=== PATIENT | male | born 1955 | race Caucasian/White ===

== ENCOUNTER → 2016-07-04 | Outpatient (CLI) | payer BC ==
--- NOTE | 2016-07-04 19:22 | CT ---
EXAMINATION TYPE: CT brain wo con DATE OF EXAM: 07/04/2016 6:35 PM COMPARISON: NONE HISTORY: PT STATES OF MEMORY LOSS X2 MONTHS. CT DLP: 1035.1 mGycm Automated exposure control for dose reduction was used. FINDINGS: The ventricles and sulci appear normal for age. There is no mass effect nor midline shift. There is n o sign of intracranial hemorrhage. The calvarium is intact. IMPRESSION: Negative unenhanced head CT scan.
== END ==
LOC: RADCTMAIN 18:17
PROVIDERS: ATTEND Family Medicine
DX: R41.3 Other amnesia (principal)
CPT/HCPCS: 70450

== ENCOUNTER → 2018-08-23 | Outpatient (CLI) | payer BC ==
--- NOTE | 2018-08-23 11:20 | ECHOF ---
Referral Reason: MEASUREMENTS -------- HEIGHT: 172.7 cm WEIGHT: 158.8 kg BP: IVSd: 1.2 cm (0.6 - 1.1) LVIDd: 5.4 cm (3.9 - 5.3) LVPWd: 1.6 cm (0.6 - 1.1) IVSs: 2.1 cm LVIDs: 1.8 cm LVPWs: 2.0 cm Ao Diam: 3.4 cm (2.0 - 3.7) AV Cusp: 2.3 cm (1.5 - 2.6) LA Diam: 3.1 cm (2.7 - 3.8) MV E Brant: 0.93 m/s MV DecT: 266 ms MV A Brant: 1.03 m/s MV E/A Ratio: 0.90 RAP: 5.00 mmHg RVSP: 8.59 mmHg FINDINGS -------- Sinus rhythm. This was a technically difficult study with suboptimal views. The left ventricular size is normal. There is moderate concentric left ventricular hypertrophy. O verall left ventricular systolic function is normal with, an EF between 55 - 60 %. The RV was not well visualized. The left atrium was not well visualized. The right atrium was not well visualized. Lumason used Interatrial and interventricular septum intact. The aortic valve was not well visualized. There is trace mitral regurgitation. The tricuspid valve was not well visualized. Trace tricuspid regurgitation present. The right lamine tricular systolic pressure, as measured by Doppler, is 8.59mmHg. There is no pulmonic regurgitation present. The aortic root size is normal. IVC Not well visulized. There is no pericardial effusion. CONCLUSIONS -------- 1. Sinus rhythm. 2. This was a technically difficult study with suboptimal views. 3. The left ventricular size is normal. 4. There is moderate concentric left ventricular hypertrophy. 5. Overall left ventricular systolic function is normal with, an EF between 55 - 60 %. 6. The RV was not well visualized. 7. The left atrium was not well visualized. 8. The right atrium was not well visualized. 9. Lumason used 10. Interatrial and interventricular septum intact. 11. The aortic valve was not well visualized. 12. There is trace mitral regurgitation. 13. The tricuspid valve was not well visualized. 14. Trace tricuspid regurgitation present. 15. The right ventricular systolic pressure, as measured by Doppler, is 8.59mmHg. 16. There is no pulmonic regurgitation present. 17. The aortic root size is normal. 18. IVC Not well visulized. 19. There is no pericardial effusion. [employer]ON APPRENTICE: Laila Baltazar RDCS
== END | disposition home or self-care (01) ==
LOC: RADECHMAIN 07:46
PROVIDERS: ATTEND Family Medicine
DX: I11.9 Hypertensive heart disease without heart failure (principal); E11.9 Type 2 diabetes mellitus without complications; E78.2 Mixed hyperlipidemia
CPT/HCPCS: 93306; Q9950

== ENCOUNTER → 2018-09-18 | Outpatient (CLI) | payer BC ==
--- NOTE | 2018-09-18 08:27 | US ---
EXAMINATION TYPE: US venous doppler duplex LE DATE OF EXAM: 09/18/2018 7:15 AM COMPARISON: NONE CLINICAL HISTORY: R60.9 Edema,L03.116 Lt Cellulitis, L03.115 Rt Cell. SIDE PERFORMED: Bilateral TECHNIQUE: The lower extremity deep venous system is examined utilizing real time linear array sonog carli with graded compression, doppler sonography and color-flow sonography. VESSELS IMAGED: External Iliac Vein (EIV) Common Femoral Vein Deep Femoral Vein Greater Saphenous Vein * Femoral Vein Popliteal Vein Proximal Calf Veins (* superficial vessels) Grayscale, color doppler, spectral doppler imaging performed of the deep veins of the lower extremiti es. There is normal flow, compressibility, vascular waveforms. Right Leg: Negative for DVT Left Leg: Negative for DVT IMPRESSION: No sonographic evidence of deep venous thrombosis within the bilateral lower extremities .
== END | disposition home or self-care (01) ==
LOC: RADUSWWP 06:37
PROVIDERS: ATTEND Family Medicine
DX: R60.9 Edema, unspecified (principal); L03.116 Cellulitis of left lower limb; L03.115 Cellulitis of right lower limb
CPT/HCPCS: 93970

== ENCOUNTER → 2019-12-10 | Outpatient (CLI) | payer BC ==
--- NOTE | 2019-12-10 13:48 | CT ---
EXAMINATION TYPE: CT brain wo con DATE OF EXAM: 12/10/2019 COMPARISON: 07/04/2016 INDICATION: Double vision today. DLP: 1219 mGycm, Automated exposure control for dose reduction was used. CONTRAST: None CT of the brain is performed utilizing 3 mm thick sections through the posterior fossa and 3 mm thick sections through the remaining calvarium. Study is performed within 24 hours of arrival to the hosp [facility]. No abnormal hyperdensity is present to suggest an acute intracranial hemorrhage. No mass lesion is evident. No acute infarcts are evident. Ventricles and sulci are appropriate for the patient age. Paranasal sinuses and mastoid air cells within the [id number] are clear. IMPRESSIONS: 1. Normal CT Brain
== END | disposition home or self-care (01) ==
LOC: RADCTMAIN 13:14
PROVIDERS: ATTEND Family Medicine
DX: H53.2 Diplopia (principal); I10 Essential (primary) hypertension; R51 Headache
CPT/HCPCS: 70450

== ENCOUNTER 2019-12-17 09:06 | Observation (INO) | payer BC ==
[2019-12-17] MEDS ORDERED: RX INFO: IV CONTRAST WAS GIVEN 1 EACH MISC MISCELLANE PRN (09:47)
[2019-12-17] MEDS ORDERED: NITROGLYCERIN SL TABS 0.4 MG TAB SUBLINGUAL STA (09:47)
[2019-12-17] MEDS ORDERED: ASPIRIN 81 MG PO STA (09:47)
[2019-12-17] MEDS ORDERED: ACETAMINOPHEN TAB 325 MG TAB PO STA (09:48)
[2019-12-17 10:11] LABS: Basophils % (A) 0 %; Eosinophils # (A) 0.1 k/uL (0-0.7); Eosinophils % (A) 1 %; HCT 45.1 % (39.0-53.0); HGB 15.2 gm/dL (13.0-17.5); Lymphocytes # (A) 1.4 k/uL (1.0-4.8); Lymphocytes % (A) 13 %; MCH 30.5 pg (25.0-35.0); MCHC 33.7 g/dL (31.0-37.0); MCV 90.3 fL (80.0-100.0); Mean Platelet Volume 7.8; Monocytes # (A) 0.4 k/uL (0-1.0); Monocytes % (A) 4 %; Neutrophils # (A) 8.6 k/uL (1.3-7.7); Neutrophils % (A) 80 %; Platelet Count 205 k/uL (150-450); RDW 12.7 % (11.5-15.5); WBC 10.8 k/uL (3.8-10.6)
[2019-12-17 10:26] LABS: INR 0.9 (<1.2); Partial Thromboplastin Time 23.4 sec (22.0-30.0); Prothrombin Time 9.8 sec (9.0-12.0)
[2019-12-17 10:36] LABS: ALT 35 U/L (4-49); AST 44 U/L (17-59); African American GFR (CKD) >90 (>60 ml/min/1.73 sqM); Albumin 4.2 g/dL (3.5-5.0); Alkaline Phosphatase 156 U/L (38-126); Anion Gap 8 mmol/L; Blood Urea Nitrogen 15 mg/dL (9-20); Calcium 9.4 mg/dL (8.4-10.2); Carbon Dioxide 24 mmol/L (22-30); Chloride 107 mmol/L (98-107); Glucose 168 mg/dL (74-99); Magnesium 1.9 mg/dL (1.6-2.3); Non-African American GFR(CKD) >90 (>60 ml/min/1.73 sqM); Potassium 4.3 mmol/L (3.5-5.1); Sodium 139 mmol/L (137-145); Total Bilirubin 0.9 mg/dL (0.2-1.3); Total Protein 7.3 g/dL (6.3-8.2)
--- NOTE | 2019-12-17 10:52 | ED ---
Chest Pain HPI - General Chief Complaint: Chest Pain Stated Complaint: chest pain Time Seen by Provider: 12/17/19 09:10 Source: patient Mode of arrival: wheelchair - History of Present Illness Initial Comments: Patient is a 64-year-old male presents emergency room with reported chest pain. States it started around 6 AM this morning. He describes it as a pressure which radiates to his left arm. Has left arm numbness and tingling. Pain has been steady. Did not attempt to take any medications for his symptoms. Denies ripping or tearing sensation to his back. Has associated nausea without vomiting. Also admits to diaphoresis. No previous history of cardiac disease. Denies any fevers or chills. No cough or hemoptysis. Patient reports his been a significant period of time since he had a stress test. Patient also reports 2 recent issues with his vision. His noted that on Monday he was having normal gaze and his left side. He says primary care physician who noted he was hypertensive and placed him on hydralazine twice daily. It was noted that the patient had a lateral rectus palsy. Patient was sent for a CT on Monday of his head which was negative. He followed up with Dr. Hernandez on Monday had a full eye exam performed. They stated that his eye exam was normal except for the palsy. Patient was told it would take 1-3 months for the movement to come back. He has a scheduled follow-up appointment with the eye doctor. There are no other alleviating, precipitating or modifying factors - Related Data Home Medications Medication Instructions Recorded Confirmed Aspirin 81 mg PO DAILY 09/02/14 12/17/19 Atorvastatin Calcium [Lipitor] 80 mg PO HS 09/02/14 12/17/19 Multivitamin [Men's Multi-Vitamin] 1 tab PO DAILY 09/02/14 12/17/19 Nabumetone [Relafen] 750 mg PO BID 09/02/14 12/17/19 atenoloL [Tenormin] 100 mg PO HS 09/02/14 12/17/19 lisinopriL 40 mg PO BID 09/02/14 12/17/19 Ascorbic Acid [Vitamin C] 500 mg PO DAILY 12/17/19 12/17/19 Verapamil HCl [Verapamil ER] 240 mg PO BID 12/17/19 12/17/19 hydrALAZINE HCL [Apresoline] 50 mg PO BID 12/17/19 12/17/19 traMADol HCL 50 mg PO BID PRN 12/17/19 12/17/19 traZODone HCL 100 mg PO HS 12/17/19 12/17/19 Previous Rx's Medication Instructions Recorded hydroCHLOROthiazide [Hydrodiuril] 25 mg PO DAILY #30 tab 12/19/19 Allergies Allergy/AdvReac Type Severity Reaction Status Date / Time bee venom protein (honey bee) Allergy Swelling Verified 12/17/19 12:33 Penicillins Allergy Rash/Hives Verified 12/17/19 12:33 Review of Systems ROS Statement: Those systems with pertinent positive or pertinent negative responses have been documented in the HPI. ROS Other: All systems not noted in ROS Statement are negative. EKG Findings - EKG Comments: EKG Findings:: EKG demonstrates a sinus tachycardia with a ventricular rate of 59. WV interval 190. QRS 94. QTC 455. No acute ST segment elevations or depressions concerning for ischemic changes Past Medical History Past Medical History: Chest Pain / Angina, Diabetes Mellitus, Hyperlipidemia, Hypertension Additional Past Medical History / Comment(s): hx. loose stools for almost a year, sigmoid diverticulosis,vit d deficency,thallium stress test 2010-wnl History of Any Multi-Drug Resistant Organisms: None Reported Additional Past Surgical History / Comment(s): colonoscopy w/ bx and polpectomy Past Anesthesia/Blood Transfusion Reactions: No Reported Reaction Past Psychological History: No Psychological Hx Reported Past Alcohol Use History: None Reported Past Drug Use History: None Reported - Past Family History Father Family Medical History: Hypertension, Myocardial Infarction ([place]) Additional Family Medical History / Comment(s): AGE 51 [place] Mother Family Medical History: Cancer Additional Family Medical History / Comment(s): LUNG CANCER General Exam General appearance: alert, in no apparent distress Head exam: Present: atraumatic, normocephalic, normal inspection Eye exam: Present: normal appearance, PERRL, other (left 6th nerve palsy). Absent: scleral icterus, conjunctival injection, periorbital swelling ENT exam: Present: normal exam, mucous membranes moist Neck exam: Present: normal inspection. Absent: tenderness, meningismus, lymphadenopathy Respiratory exam: Present: normal lung sounds bilaterally. Absent: respiratory distress, wheezes, rales, rhonchi, stridor Cardiovascular Exam: Present: regular rate, normal rhythm, normal heart sounds. Absent: systolic murmur, diastolic murmur, rubs, gallop, clicks GI/Abdominal exam: Present: soft, normal bowel sounds. Absent: distended, tenderness, guarding, rebound, rigid Extremities exam: Present: normal inspection, full ROM, normal capillary refill. Absent: tenderness, pedal edema, joint swelling, calf tenderness Back exam: Present: normal inspection Neurological exam: Present: alert, oriented X3, CN II-XII intact Psychiatric exam: Present: normal affect, normal mood Skin exam: Present: warm, dry, intact, normal color. Absent: rash Course Vital Signs 12/17/19 12/17/19 12/17/19 09:11 09:20 09:36 Temperature 98.7 F Pulse Rate 63 60 Pulse Rate [ 59 L Pals Nurse ] Respiratory 18 18 Rate Blood Pressure 206/93 193/91 O2 Sat by Pulse 99 98 Oximetry 12/17/19 12/17/19 12/17/19 10:16 10:28 11:18 Temperature Pulse Rate 60 58 L 56 L Pulse Rate [ Pals Nurse ] Respiratory 18 18 18 Rate Blood Pressure 192/92 155/75 172/80 O2 Sat by Pulse 97 97 98 Oximetry 12/17/19 12/17/19 12/17/19 12:08 12:44 14:00 Temperature 98.0 F 98.2 F Pulse Rate 53 L 54 L 56 L Pulse Rate [ Pals Nurse ] Respiratory 18 18 18 Rate Blood Pressure 162/84 181/87 173/92 O2 Sat by Pulse 98 98 98 Oximetry Chest Pain MDM - MDM Upon arrival patient is placed into room 2. A thorough history and physical exam was performed. Peripheral IV was established. The patient was given an aspirin and a nitro. Laboratory studies were conducted. Patient was sent for a CT of his chest as well as CT angiography of his head and neck because of his headache, eye palsy, chest pain and left upper extremity numbness. Lab studies are unremarkable. Troponin is negative. Chest CT and angiography of the brain demonstrates no significant stenosis. I did recommend hospital admission orders on the patient's troponins for which he did agree. I discussed case with Dr. Babb who accepted admission. Patient was then transported to the floor Disposition Clinical Impression: Chest pain, Unstable angina pectoris, Hypertensive urgency, Lateral rectus palsy Disposition: ADMITTED IP TO THIS HOSP Condition: Stable Is patient prescribed a controlled substance at d/c from ED?: No Decision to Admit Reason: Admit from EC Decision Date: 12/17/19 Decision Time: 12:00
--- NOTE | 2019-12-17 11:38 | CT ---
EXAMINATION TYPE: CT angio head neck, CT angio chest DATE OF EXAM: 12/17/2019 HISTORY: Eye palsy, left arm weakness. (accession [id number]), Chest pain, left arm weakness. (accessio n [id number]) COMPARISON: NONE CT DLP: 1106.4 (accession [id number]), 2486.2 (accession [id number]) mGycm. Automated Exposure Control f or Dose Reduction was Utilized. TECHNIQUE: CTA scan of the head and neck and thorax are all performed without and with IV Contrast, patient injected with 70 (accession [id number]), 100 (accession [id number]) mL of Isovue 370 (accession [id number]), Isovue 300 (accession [id number]), axial images are obtained, coronal and sagittal reformatte d images are reviewed. Three-D reconstructed images are created on an independent workstation and rev iewed. FINDINGS: Carotid/Vascular Structures: Normal 3 vessel origins from aortic arch. Thoracic aorta shows mild tiffanie pheral calcified plaque just past the origin of the 3 great vessels. No aneurysm or dissection. Bilat eral subclavian arteries are patent without significant plaque or stenosis. Right common carotid artery shows normal origin from right brachiocephalic artery. No significant humberto que or stenosis in common carotid arteries bilaterally. Mild peripheral plaque at carotid bulbs exten ding into proximal internal carotid arteries bilaterally without significant stenosis. Patent bilater al external carotid arteries without significant plaque or stenosis. Some tortuous course to the bila teral internal carotid arteries greater on the left without significant plaque or stenosis mid segmen ts. Moderate peripheral calcified plaque supraclinoid segment bilaterally. Dominant right vertebral artery. Vertebral arteries are patent to basilar junction. Patent bilateral posterior communicating arteries. No significant focal stenosis or aneurysmal change. Patent anterior communicating artery. No significant focal stenosis or aneurysmal change. Other: Elevated left hemidiaphragm. Lungs are clear. Coronary artery calcification is present which i s noted marked underlying coronary artery disease. Slight scoliotic curvature with multilevel spurring throughout the cervical and thoracic spine razia ioma is present at T1 vertebral body level. Visualized brain parenchyma is unremarkable. Globes are intact. Intraconal fat is preserved bilateral ly. Paranasal sinuses are clear. IMPRESSION: No significant stenosis in the aortic arch and thoracic arterial vessels. No significant stenosis in common or internal carotid arteries bilaterally. No significant stenosis or aneurysmal c hange at the level of the [place].
[2019-12-17] MEDS ORDERED: NALOXONE 0.4 MG/ML 1 ML VIAL IV PRN (12:23)
[2019-12-17] MEDS ORDERED: HEPARIN SODIUM,PORCINE 5,000 UNIT/ML 1 ML VIAL IV ONE (12:27)
[2019-12-17] MEDS ORDERED: HEPARIN SODIUM,PORCINE 5,000 UNIT/ML 1 ML VIAL IV PRN (12:27)
[2019-12-17] MEDS ORDERED: HEPARIN SOD,PORK IN 0.45% NACL 25,000 UNIT in 0.45% NACL 1 250ML.BAG IV SCH (12:30)
[2019-12-17] MEDS ORDERED: traMADol 50 MG TAB PO PRN (16:06)
[2019-12-17] MEDS: INSULIN ASPART (NovoLOG) 100 UNIT/ML VIAL SQ SCH ×3 (16:11→21:10)
[2019-12-17 16:40] LABS: Glucose,Whole Blood 190 mg/dL (75-99)
--- NOTE | 2019-12-17 19:42 | CONS ---
CONSULTATION CHIEF COMPLAINT: Chest pain. This is a 64-year-old gentleman with history of hypertension, diabetes, dyslipidemia, who presents to hospital complaining of chest pain. His chest discomfort is precordial, left sided, mild intensity, unrelated to exertion, also with diaphoresis. There is no prior history of coronary artery disease or congestive heart failure. His blood pressure was elevated on admission. EKG showed sinus rhythm with nonspecific ST- T wave changes. First set of troponin is negative. The patient has left sixth nerve palsy that happened couple of weeks earlier and thought to be secondary to hypertension. At the time of my evaluation his chest discomfort is has improved. The patient had a negative stress test a few years ago and had an echocardiogram last year that showed normal LV function. PAST MEDICAL HISTORY: Significant for hypertension, diabetes, dyslipidemia. MEDICATIONS AT HOME: Include aspirin, Lipitor, Verapamil, Tenormin, hydralazine, lisinopril, trazodone. ALLERGIES: PENICILLIN AND HONEY BEE. FAMILY HISTORY: Negative for premature coronary artery disease. SOCIAL HISTORY: Negative for current smoking, EtOH abuse, or drug abuse. REVIEW OF SYSTEMS: HEENT: Significant for left sixth nerve palsy. CARDIAC: As described above. RESPIRATORY: Negative. GI: Negative. GENITOURINARY: Negative. ALLERGY/IMMUNOLOGY: Negative. SKIN: Negative. MUSCULOSKELETAL: Negative. ENDOCRINE: Negative. HEMATOLOGY: Negative. DERM: Negative. CONSTITUTIONAL: Negative. ONCOLOGICAL: Negative. 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 On exam patient is comfortable at rest. Blood pressure is poorly controlled. There is no jugular venous distention. Carotid upstroke is normal, there is no bruit. Chest is clear to auscultation. Heart exam reveals first and second heart sounds. S4 is heard. Abdomen is soft. Exam of extremities did not reveal any edema. Peripheral pulses are felt. ASSESSMENT: 1. Precordial chest pain. 2. Left sixth nerve palsy. 3. Hypertension. PLAN: The patient is currently on IV heparin which I am going to continue. I will obtain a 2D echo in the morning. I will obtain serial troponins to rule out myocardial infarction. We will decide tomorrow morning on whether to do a stress test on him or perform cardiac catheterization, but either way I want his blood pressure to be better controlled and have a sense of what the sixth nerve palsy is about. MMODL / IJN: [id number] /
[2019-12-17 20:52] LABS: Glucose,Whole Blood 112 mg/dL (75-99)
[2019-12-17] MEDS: MELOXICAM 7.5 MG TAB PO SCH (21:06)
[2019-12-17] MEDS: ATORVASTATIN 80 MG TAB PO SCH (21:07)
[2019-12-17] MEDS: hydrALAZINE HCL 50 MG TAB PO SCH (21:07)
[2019-12-17] MEDS: lisinopriL 20 MG TAB PO SCH (21:08)
[2019-12-17] MEDS: VERAPAMIL SR 240 MG TABLET.ER PO SCH (21:08)
[2019-12-17] MEDS: atenoloL 50 MG TAB PO SCH (21:08)
[2019-12-17] MEDS: traZODone HCL 100 MG TAB PO SCH (21:08)
--- NOTE | 2019-12-17 23:12 | P.HPIM ---
History of Present Illness H&P Date: 12/17/19 Chief Complaint: Chest Pain Patient is a 64-year-old male with a known history of hypertension, hyperlipidemia, diabetes type 2 [id number], sigmoid diverticulosis a nd previous stress test in 2014- for any inducible ischemia presents to ER with the complaints of chest pain. Patient states that at around 6 AM this morning patient started having left retrosternal chest pain, pressure-like sensation and radiating down the left arm. Patient states he had left arm numbness and tingling. Denied any complaints of nausea vomiting . no shortness of breath along with chest pain. Minimal diaphoresis. No cough or sputum production. No fever no chills. Denies any recent infections. Patient states that he developed double vision with left lateral rectus muscle p aralysis and was seen by ophthalmology. Patient was seen by his PCP and CT head was negative. Patient followed up with Dr. Hernandez on Monday and full eye exam was performed. Patient did not get a chance to see a neurologist as of now. Denies any headache. Denied any focal weakness.Denied history of arrhythmia. No palpitations. Patient states that he has been having trouble controlling blood pressure recently and was placed on hydralazine twice daily by his PCP. CT angiogram of the head, neck and chest showed no significant stenosis in the aortic arch and thoracic arterial vessels. No significant stenosis in, not internal carotid arteries bilaterally. No significant stenosis or aneurysmal change of the level of the [place]. EKG showed sinus bradycardia Laboratory data showed WBC 10.8, hemoglobin 15.2, platelets 205 INR 0.9 Sodium 139, potassium 4.3, bicarb is 24, BUN 15 and creatinine 0.7 Troponin x2- Alk phos 156. AST ALT within normal limits. proBNP 101 Lipase level is 124 Review of Systems Constitutional: Patient denies any fever or chills . No generalized weakness or weight loss. Abdomen: Patient denied nausea vomiting and diarrhea and abdominal pain. Cardiovascular: Patient does have left retrosternal chest pain, pressure-like sensation and has been constant. No associated shortness of breath. No pal pitations. No leg swelling. Respiratory: patient denied any cough is from production. No shortness of breath Neurologic: Patient denied any numbness or tingling headache. left eye rectus muscle palsy, double vision Musculoskeletal: Patient denies any complaints of joint swelling or deformity. Skin: Negative Psychiatric: Negative Endocrine: No heat or cold intolerance. No recent weight gain. Genitourinary: No dysuria or hematuria. All other 14 point ROS negative except the above Past Medical History Past Medical History: Chest Pain / Angina, Diabetes Mellitus, Hyperlipidemia, Hypertension Additional Past Medical History / Comment(s): hx. loose stools for almost a year, sigmoid diverticulosis,vit d deficency,thallium stress test 2009-wnl History of Any Multi-Drug Resistant Organisms: None Reported Additional Past Surgical History / Comment(s): colonoscopy w/ bx and polpectomy Past Anesthesia/Blood Transfusion Reactions: No Reported Reaction Past Psychological History: No Psychological Hx Reported Past Alcohol Use History: None Reported Past Drug Use History: None Reported - Past Family History Father Family Medical History: Hypertension, Myocardial Infarction ([place]) Additional Family Medical History / Comment(s): AGE 51 [place] Mother Family Medical History: Cancer Additional Family Medical History / Comment(s): LUNG CANCER Medications and Allergies Home Medications Medication Instructions Recorded Confirmed Type Aspirin 81 mg PO DAILY 09/02/14 12/17/19 History Atorvastatin Calcium [Lipitor] 80 mg PO HS 09/02/14 12/17/19 History Multivitamin [Men's Multi-Vitamin] 1 tab PO DAILY 09/02/14 12/17/19 History Nabumetone [Relafen] 750 mg PO BID 09/02/14 12/17/19 History atenoloL [Tenormin] 100 mg PO HS 09/02/14 12/17/19 History lisinopriL 40 mg PO BID 09/02/14 12/17/19 History Ascorbic Acid [Vitamin C] 500 mg PO DAILY 12/17/19 12/17/19 History Verapamil HCl [Verapamil ER] 240 mg PO BID 12/17/19 12/17/19 History hydrALAZINE HCL [Apresoline] 50 mg PO BID 12/17/19 12/17/19 History traMADol HCL 50 mg PO BID PRN 12/17/19 12/17/19 History traZODone HCL 100 mg PO HS 12/17/19 12/17/19 History Allergies Allergy/AdvReac Type Severity Reaction Status Date / Time bee venom protein (honey bee) Allergy Swelling Verified 12/17/19 12:33 Penicillins Allergy Rash/Hives Verified 12/17/19 12:33 Physical Exam Vitals: Vital Signs Temp Pulse Pulse Resp BP BP Pulse Ox 12/17/19 16:51 163/83 12/17/19 14:45 60 12/17/19 14:43 97.8 F 60 18 190/94 99 12/17/19 14:00 98.2 F 56 L 18 173/92 98 12/17/19 12:44 98.0 F 54 L 18 181/87 98 12/17/19 12:08 53 L 18 162/84 98 12/17/19 11:18 56 L 18 172/80 98 12/17/19 10:28 58 L 18 155/75 97 12/17/19 10:16 60 18 192/92 97 12/17/19 09:36 60 18 193/91 98 12/17/19 09:20 59 L 12/17/19 09:11 98.7 F 63 18 206/93 99 Intake and Output 12/17/19 12/17/19 12/17/19 06:59 14:59 22:59 Intake Total 100 Balance 100 Intake: Oral 100 Other: # Voids 1 Weight 130.635 kg PHYSICAL EXAMINATION: Patient is lying in the bed comfortably, no acute distress, awake alert and oriented.. HEENT: Normocephalic. Neck is supple. Pupils reactive. Nostrils clear. Oral cavity is moist. Ears reveal no drainage. Neck reveals no JVD, carotid bruits, or thyromegaly. CHEST EXAMINATION: Trachea is central. Symmetrical expansion. Lung ramos clear to auscultation and percussion. CARDIAC: Normal S1, S2 with no gallops. No murmurs ABDOMEN: Soft. Bowel sounds normal. No organomegaly. No abdominal bruits. Extremities: reveal no edema. No clubbing or cyanosis Neurologically awake, alert, oriented x3 with well-coordinated movements.Left lateral rectus muscle paralysis. Motor strength 5 x 5 in all 4 extremities. Skin: No rash or skin lesions. Psychiatric: Coperative. Nonsuicidal Musculoskeletal: No joint swelling or deformity. Normal range of motion. Results CBC & Chem 7: 12/17/19 09:55 12/17/19 09:55 Labs: Abnormal Lab Results - Last 24 Hours (Table) 12/17/19 12/17/19 12/17/19 Range/Units 09:55 09:55 16:39 WBC 10.8 H (3.8-10.6) k/uL Neutrophils # 8.6 H (1.3-7.7) k/uL Glucose 168 H (74-99) mg/dL POC Glucose (mg/dL) 190 H (75-99) mg/dL Alkaline Phosphatase 156 H (38-126) U/L Thrombosis Risk Factor Assmnt - DVT/VTE Prophylaxis DVT/VTE Prophylaxis: Pharmacologic Prophylaxis ordered - Choose All That Apply Any of the Below Risk Factors Present?: Yes Each Factor Represents 1 point: Obesity (BMI >25) Other Risk Factors: Yes Each Risk Factor Represents 2 Points: Age 61-74 years Other congenital or acquired thrombophilia - If yes, enter type in comment: No Thrombosis Risk Factor Assessment Total Risk Factor Score: 3 Thrombosis Risk Factor Assessment Level: Moderate Risk Assessment and Plan Assessment: Atypical chest pain. Rule out ACS. Rule out arrhythmia. Recent left lateral rectus muscle palsy with double vision. CT head was negative as an outpatient. Hypertensive urgency on admission Hyperlipidemia Diabetes type 2 [id number] Sigmoid diverticulosis Morbid obesity with BMI 39.1 DVT prophylaxis Plan: Patient will be continued on telemetry monitoring. Serial EKG and troponin x3. Patient was started on heparin drip. We will start back on lisinopril, hydralazine and verapamil as per his home dose. will add diuretic if the blood pressure is not well controlled. Cardiology was consulted. Will consult neurology due to recent lateral rectus muscle paralysis. Patient does not have any history of arrhythmia. Continue with aspirin and statins. Follow-up closely. Time with Patient: Greater than 30
[2019-12-18 06:52] LABS: Glucose,Whole Blood 147 mg/dL (75-99)
[2019-12-18] MEDS: INSULIN ASPART (NovoLOG) 100 UNIT/ML VIAL SQ SCH ×4 (06:55→21:09)
[2019-12-18 07:59] VITALS: RESP 16
[2019-12-18] MEDS: MELOXICAM 7.5 MG TAB PO SCH ×2 (08:51→21:10)
[2019-12-18] MEDS: MULTIVITAMINS, THERA 1 EACH TAB PO SCH (08:51)
[2019-12-18] MEDS: hydrALAZINE HCL 50 MG TAB PO SCH ×2 (08:51→21:09)
[2019-12-18] MEDS: lisinopriL 20 MG TAB PO SCH ×2 (08:51→21:09)
[2019-12-18] MEDS: VERAPAMIL SR 240 MG TABLET.ER PO SCH ×2 (08:51→21:10)
[2019-12-18] MEDS: ASCORBIC ACID 500 MG TAB PO SCH (08:52)
[2019-12-18] MEDS: HEPARIN SODIUM,PORCINE 5,000 UNIT/ML 1 ML VIAL SQ SCH ×2 (08:54→21:09)
[2019-12-18 09:43] LABS: Basophils % (A) 0 %; Eosinophils # (A) 0.1 k/uL (0-0.7); Eosinophils % (A) 1 %; HCT 46.3 % (39.0-53.0); HGB 15.2 gm/dL (13.0-17.5); Lymphocytes # (A) 1.8 k/uL (1.0-4.8); Lymphocytes % (A) 16 %; MCHC 32.9 g/dL (31.0-37.0); Mean Platelet Volume 7.7; Monocytes # (A) 0.6 k/uL (0-1.0); Monocytes % (A) 5 %; Neutrophils # (A) 8.4 k/uL (1.3-7.7); Neutrophils % (A) 76 %; Platelet Count 223 k/uL (150-450); RBC 5.09 m/uL (4.30-5.90); RDW 12.3 % (11.5-15.5)
[2019-12-18 10:05] LABS: African American GFR (CKD) >90 (>60 ml/min/1.73 sqM); Anion Gap 7 mmol/L; Blood Urea Nitrogen 15 mg/dL (9-20); Calcium 9.3 mg/dL (8.4-10.2); Carbon Dioxide 27 mmol/L (22-30); Chloride 105 mmol/L (98-107); Glucose 173 mg/dL (74-99); Non-African American GFR(CKD) >90 (>60 ml/min/1.73 sqM); Potassium 4.2 mmol/L (3.5-5.1); Sodium 139 mmol/L (137-145)
--- NOTE | 2019-12-18 10:35 | P.PN ---
Subjective This is a pleasant 64-year-old male past medical history significant for hypertension, diabetes and dyslipidemia who was recently diagnosed with left sixth nerve palsy. He presented to the hospital with symptoms of chest discomfort. He is seen and examined sitting up in the chair in no acute distress. He has had no further symptoms of chest discomfort. He denies shortness of breath, dizziness or palpitations. Blood pressure is better controlled today but still elevated at 155/87 with a heart rate of 58. He is currently maintained on heparin infusion, atenolol 100 mg at bedtime, atorvastatin 80 mg at bedtime, hydralazine 50 mg twice a day, lisinopril 40 mg twice a day and verapamil 240 mg twice a day. Laboratory data reviewed, WBC 11, hemoglobin 15.2, platelets 223, sodium 139, potassium 4.2, creatinine 0.85 and cardiac enzymes negative 3. Telemetry tracings have been unremarkable. GENERAL: Well-appearing, well-nourished and in no acute distress. NECK: Supple without JVD or thyromegaly. LUNGS: Breath sounds clear to auscultation bilaterally. Respiration equal and unlabored. No wheezes, rales or rhonchi. HEART: Regular rate and rhythm without murmurs, rubs or gallops. S1 and S2 heard. EXTREMITIES: Normal range of motion, no edema. No clubbing or cyanosis. Peripheral pulses intact. ASSESSMENT Chest pain Left sixth nerve palsy Hypertension, uncontrolled PLAN An acute coronary event has been ruled out. Discontinue heparin infusion. Echocardiogram has been obtained and will be reviewed. At this time we will continue to manage his blood pressure and await neurology's evaluation before proceeding with further cardiac testing. Initiate aspirin 81 mg daily and hydrochlorothiazide 25 mg daily for blood pressure control. Nurse Practitioner note has been reviewed, I agree with a documented findings and plan of care. Patient was seen and examined. Objective - Vital Signs Vital signs: Vital Signs Temp 98.3 F 12/18/19 07:50 Pulse 58 L 12/18/19 07:50 Resp 16 12/18/19 07:50 BP 155/87 12/18/19 07:50 Pulse Ox 98 12/18/19 07:50 Intake & Output 12/17/19 12/18/19 12/18/19 18:59 06:59 18:59 Intake Total 640 146.761 311.228 Balance 640 146.761 311.228 Weight 130.635 kg Intake: Intake, IV Titration 146.761 71.228 Amount Heparin Sod,Pork in 0.45% 146.761 71.228 NaCl 25,000 unit In 0.45 % NaCl 1 250ml.bag @ 7. 655 UNITS/KG/HR 10 mls/hr IV .Q24H [facility] Rx#: [id number] Oral 640 240 Other: Voiding Method Toilet # Voids 1 1 - Labs CBC & Chem 7: 12/18/19 09:07 12/18/19 09:07 Labs: Abnormal Lab Results - Last 24 Hours (Table) 12/17/19 12/17/19 12/17/19 Range/Units 09:55 09:55 16:39 WBC 10.8 H (3.8-10.6) k/uL Neutrophils # 8.6 H (1.3-7.7) k/uL APTT (22.0-30.0) sec Glucose 168 H (74-99) mg/dL POC Glucose (mg/dL) 190 H (75-99) mg/dL Alkaline Phosphatase 156 H (38-126) U/L 12/17/19 12/17/19 12/18/19 Range/Units 18:38 20:47 00:27 WBC (3.8-10.6) k/uL Neutrophils # (1.3-7.7) k/uL APTT 34.0 H 78.1 H (22.0-30.0) sec Glucose (74-99) mg/dL POC Glucose (mg/dL) 112 H (75-99) mg/dL Alkaline Phosphatase (38-126) U/L 12/18/19 Range/Units 06:51 WBC (3.8-10.6) k/uL Neutrophils # (1.3-7.7) k/uL APTT (22.0-30.0) sec Glucose (74-99) mg/dL POC Glucose (mg/dL) 147 H (75-99) mg/dL Alkaline Phosphatase (38-126) U/L
[2019-12-18] MEDS: ASPIRIN 81 MG PO SCH (11:19)
[2019-12-18] MEDS: hydroCHLOROthiazide 25 MG TAB PO SCH (11:19)
[2019-12-18 11:41] LABS: Glucose,Whole Blood 122 mg/dL (75-99)
[2019-12-18] MEDS ORDERED: ACETAMINOPHEN TAB 325 MG TAB PO PRN (11:56)
--- NOTE | 2019-12-18 13:14 | P.CNNES ---
History of Present Illness Consult date: 12/18/19 Requesting physician: Chayito Hallman Reason for Consult: Double vision and left 6 palsy History of Present Illness: This is a 64-year-old right-handed gentleman with a medical history of hypertension (for 25 years), diabetes (since 2017), hyperlipidemia that presented to the ED on 12/17/2019 for reported chest pain. Neurology is consulted for left lateral rectus palsy. Patient stated that on 12/10/2019 he woke up 4:30 in the morning to go to work and he noticed that his vision was not correct on the left eye. No while driving he noticed that he's having double vision on both eyes and it was [id number]. When he covered either eye is improved. He also noticed headache over the bilateral frontal area and he described as an achy headache that did not didn't radiate anywhere. He rated it as an 8 out of 10. And that seems to be constant. Denied any photophobia photophobia. Denies any nausea vomiting. He denied of any ptosis, blurry vision any nausea any vomiting. He denied any weakness any numbness any difficulty swallowing any aphasia any urinary or bowel or bladder problems. He didn't notice any change throughout the day with his vision. He was seen by his primary care physician and his blood pressure was elevated He went to his primary care physician and he was told that his hypertension was uncontrolled and he was placed on hydralazine. His PCP notified that he had lateral rectus palsy. He had a CT of the head which was negative. He followed-up with Dr. David talley at [facility] on Monday and had a full eye exam performed and his eyes were dilated. He was notified that exam was normal other than the left lateral rectus palsy and told him this could be because possibly hypertension diabetes or some of the possibilities. He was notified that it would take 1-3 months for the movement to come back. He asked him to follow up with him. He also asked him to follow-up with a neurologist. Patient was given an eye patch for the left eye. Regarding his chest pain he said this started around 6:00 in the morning on 12/17/2019. He describes as a pressure that radiates to the left arm. He does have numbness and tingling. He does have nausea without vomiting. He does have diaphoresis. Denies any fever or coughs. Regarding the patient's high blood pressure he said that he was riding his blood pressure at home prior to this event but after he was notified that his blood pressure has been elevated he's been moderate. He's been on a special the ket ogenic diet and was eating processed food that contain a lot of salt. Regarding his diabetes he said that it's been controlled with the diet. He denies of any tobacco or use. On presentation the patient's blood pressure was 206/93, the heart rate was 63, respiratory was 18, pulse ox was 99 at room air, and temperature was 98.7 Fahrenheit oral. In the ED the patient had a CTA of the head and neck since the patient had left arm weakness as well as the left lateral rectus palsy and it was reported as no significant stenosis in the aortic arch and thoracic arterial vessel. No significant stenosis in the common or internal carotid arteries bilaterally. No significant stenosis or aneurysm changes at the level of the [place]. EKG was reported as sinus bradycardia, ventricle rate of 59. Otherwise normal. His initial white blood cell was 10.8, glucose is 168, Review of Systems Review of system: The 12 point system was reviewed and apparent positive and negative per HPI. Past Medical History Past Medical History: Chest Pain / Angina, Diabetes Mellitus, Hyperlipidemia, Hypertension Additional Past Medical History / Comment(s): hx. loose stools for almost a year, sigmoid diverticulosis,vit d deficency,thallium stress test [id number] History of Any Multi-Drug Resistant Organisms: None Reported Additional Past Surgical History / Comment(s): colonoscopy w/ bx and polpectomy Past Anesthesia/Blood Transfusion Reactions: No Reported Reaction Past Psychological History: No Psychological Hx Reported Past Alcohol Use History: None Reported Past Drug Use History: None Reported - Past Family History Father Family Medical History: Hypertension, Myocardial Infarction ([place]) Additional Family Medical History / Comment(s): AGE 51 [place] Mother Family Medical History: Cancer Additional Family Medical History / Comment(s): LUNG CANCER Medications and Allergies Home Medications Medication Instructions Recorded Confirmed Type Aspirin 81 mg PO DAILY 09/02/14 12/17/19 History Atorvastatin Calcium [Lipitor] 80 mg PO HS 09/02/14 12/17/19 History Multivitamin [Men's Multi-Vitamin] 1 tab PO DAILY 09/02/14 12/17/19 History Nabumetone [Relafen] 750 mg PO BID 09/02/14 12/17/19 History atenoloL [Tenormin] 100 mg PO HS 09/02/14 12/17/19 History lisinopriL 40 mg PO BID 09/02/14 12/17/19 History Ascorbic Acid [Vitamin C] 500 mg PO DAILY 12/17/19 12/17/19 History Verapamil HCl [Verapamil ER] 240 mg PO BID 12/17/19 12/17/19 History hydrALAZINE HCL [Apresoline] 50 mg PO BID 12/17/19 12/17/19 History traMADol HCL 50 mg PO BID PRN 12/17/19 12/17/19 History traZODone HCL 100 mg PO HS 12/17/19 12/17/19 History Allergies Allergy/AdvReac Type Severity Reaction Status Date / Time bee venom protein (honey bee) Allergy Swelling Verified 12/17/19 12:33 Penicillins Allergy Rash/Hives Verified 12/17/19 12:33 Physical Examination - Vital Signs Vital Signs: Vital Signs Temp Pulse Pulse Resp BP BP Pulse Ox 12/18/19 07:50 98.3 F 58 L 16 155/87 98 12/18/19 04:05 97.7 F 53 L 16 158/77 96 12/17/19 20:35 98 F 55 L 15 160/95 96 12/17/19 16:51 163/83 12/17/19 14:45 60 12/17/19 14:43 97.8 F 60 18 190/94 99 12/17/19 14:00 98.2 F 56 L 18 173/92 98 12/17/19 12:44 98.0 F 54 L 18 181/87 98 12/17/19 12:08 53 L 18 162/84 98 12/17/19 11:18 56 L 18 172/80 98 12/17/19 10:28 58 L 18 155/75 97 12/17/19 10:16 60 18 192/92 97 12/17/19 09:36 60 18 193/91 98 12/17/19 09:20 59 L 12/17/19 09:11 98.7 F 63 18 206/93 99 Intake and Output 12/17/19 12/18/19 12/18/19 22:59 06:59 14:59 Intake Total 716.833 69.928 322.716 Balance 716.833 69.928 322.716 Intake: Intake, IV Titration 76.833 69.928 82.716 Amount Heparin Sod,Pork in 0.45% 76.833 69.928 82.716 NaCl 25,000 unit In 0.45 % NaCl 1 250ml.bag @ 7. 655 UNITS/KG/HR 10 mls/hr IV .Q24H [facility] Rx#: [id number] Oral 640 240 Other: Voiding Method Toilet Toilet # Voids 2 1 GENERAL: The patient is lying in bed and is not in acute distress. CHEST: The heart rate is regular rate rhythm. No murmurs to auscultation. LUNG: Clear to auscultation bilaterally no wheezing noted throughout. Not la bored breathing. ABDOMEN/GI: Bowel sounds present in all 4 quadrants. No tenderness to palpation throughout. NEUROLOGICAL: Higher mental function: The patient is awake, alert, oriented to self, place and time. Patient is following simple and complex commands. No aphasia and no neglect. Cranial nerves: The pupils are round about 2mm bilaterally, equal and reactive to light and accommodation. Visual ramos are full to confrontation throughout. Visual acuity is 20/20 OD and 20/30 OS with correction. Primary gaze: Right eye is middle, while left eye is slightly medial deviated. Extraocular movement: There is restriction in movement of left eye looking to the left. No nystamgus is appreciated. Facial sensation is normal to touch throughout. The facial strength is normal throughout. Hearing is normal bilaterally to hand rub. Tongue is midline and moved [id number] without any difficulty. No dysarthria is noted. Shoulder shrug is normal bilaterally. Motor: Gait is normal with normal arm swings. The strength is 5 over 5 throughout. Normal tone and bulk. Cerebellum: Normal finger to nose bilaterally. Sensation: Sensation is normal to touch throughout. Reflexes (right/left): 2+ throughout except at ankles 1+ bilaterally. Plantars are downgoing bilaterally. Results - Laboratory Findings CBC and BMP: 12/18/19 09:07 12/18/19 09:07 Abnormal Lab Findings: Abnormal Labs 12/17/19 12/17/19 12/17/19 09:55 09:55 16:39 WBC 10.8 H Neutrophils # 8.6 H APTT Glucose 168 H POC Glucose (mg/dL) 190 H Alkaline Phosphatase 156 H 12/17/19 12/17/19 12/18/19 18:38 20:47 00:27 WBC Neutrophils # APTT 34.0 H 78.1 H Glucose POC Glucose (mg/dL) 112 H Alkaline Phosphatase 12/18/19 06:51 WBC Neutrophils # APTT Glucose POC Glucose (mg/dL) 147 H Alkaline Phosphatase Assessment and Plan Assessment: Mr. Davies is a 64-year-old right-handed gentleman with a medical history of hypertension (for 25 years), diabetes (since 2017), hyperlipidemia that presented to the ED on 12/17/2019 for reported chest pain. Neurology is consulted for left lateral rectus palsy since about 12/10/19. His has horizontal diplopia on both eyes and resolves with covering either eye. He also has headache over the bilateral frontal area. Otherwise denies any other neurolgical deficits. He was seen by his PCP and told his blood pressure was elevated. CT brain was done as outpatient and was negative. He seen an Ophthamologist and was told to follow-up back in 1-3months. Left lateral rectus palsy: Likely due to uncontrolled HTN, DM. Acute chest pain Uncontrolled hypertension Diabetes mellitus Plan: Had a current CT of the head and an outpatient and was told was normal. CTA of the head and neck since the patient had left arm weakness as well as the left lateral rectus palsy and it was reported as no significant stenosis in the aortic arch and thoracic arterial vessel. No significant stenosis in the common or internal carotid arteries bilaterally. No significant stenosis or aneurysm changes at the level of the [place]. Ordered MRI Brain w/ and w/o to rule out any compression which I think is unlikely. Ordered hemoglobin A1c and TSH, vitamin B12. Ordered ESR. Patient is currently on Lipitor of 80 mg, he received 1 time aspirin of 324. Patient needs to follow up with an Senior Online Marketing Manager as well as a neurologist upon discharge. Regarding the patient's chest pain, hypertension and diabetes we'll defer the management to the primary team. Thank you for the consultation. Teo Aguilar M.D. neuro- hospitalist Time with Patient: Greater than 30
[2019-12-18] MEDS ORDERED: ONDANSETRON 4 MG/2 ML VIAL IVP PRN (15:24)
[2019-12-18] MEDS ORDERED: HYDROcodone/APAP 5-325MG 1 EACH TAB PO PRN (15:24)
[2019-12-18 16:45] LABS: Glucose,Whole Blood 138 mg/dL (75-99)
[2019-12-18 20:11] LABS: Hemoglobin A1C 6.2 % (4.0-6.0)
[2019-12-18 20:45] LABS: Glucose,Whole Blood 163 mg/dL (75-99)
[2019-12-18] MEDS: atenoloL 50 MG TAB PO SCH (21:08)
[2019-12-18] MEDS: ATORVASTATIN 80 MG TAB PO SCH (21:08)
[2019-12-18] MEDS: traZODone HCL 100 MG TAB PO SCH (21:10)
[2019-12-19 06:23] LABS: Glucose,Whole Blood 147 mg/dL (75-99)
[2019-12-19] MEDS: INSULIN ASPART (NovoLOG) 100 UNIT/ML VIAL SQ SCH ×3 (06:34→16:48)
[2019-12-19] MEDS: MULTIVITAMINS, THERA 1 EACH TAB PO SCH (07:30)
[2019-12-19] MEDS: HEPARIN SODIUM,PORCINE 5,000 UNIT/ML 1 ML VIAL SQ SCH (07:30)
[2019-12-19] MEDS: hydrALAZINE HCL 50 MG TAB PO SCH (07:30)
[2019-12-19] MEDS: MELOXICAM 7.5 MG TAB PO SCH (07:31)
[2019-12-19] MEDS: ASCORBIC ACID 500 MG TAB PO SCH (07:31)
[2019-12-19] MEDS: lisinopriL 20 MG TAB PO SCH (07:31)
[2019-12-19] MEDS: hydroCHLOROthiazide 25 MG TAB PO SCH (07:31)
[2019-12-19] MEDS: ASPIRIN 81 MG PO SCH (07:31)
[2019-12-19] MEDS: VERAPAMIL SR 240 MG TABLET.ER PO SCH (07:32)
[2019-12-19] MEDS ORDERED: LORazepam 2 MG/ML INJ IV STA (08:32)
[2019-12-19 11:43] LABS: Glucose,Whole Blood 138 mg/dL (75-99)
--- NOTE | 2019-12-19 11:47 | ECHOF ---
Referral Reason:chest pain MEASUREMENTS -------- HEIGHT: 182.9 cm WEIGHT: 130.6 kg BP: 158/77 RVIDd: 3.7 cm (< 3.3) IVSd: 1.6 cm (0.6 - 1.1) LVIDd: 5.1 cm (3.9 - 5.3) LVPWd: 1.5 cm (0.6 - 1.1) IVSs: 2.2 cm LVIDs: 3.0 cm LVPWs: 1.9 cm LA Diam: 3.7 cm (2.7 - 3.8) Ao Diam: 4.1 cm (2.0 - 3.7) AV Cusp: 2.6 cm (1.5 - 2.6) MV EXCURSION: 12.169 mm (> 18.000) MV EF SLOPE: 31 mm/s (70 - 150) EPSS: 1.3 cm MV E Brant: 0.88 m/s MV DecT: 269 ms MV A Brant: 1.11 m/s MV E/A Ratio: 0.80 FINDINGS -------- Sinus rhythm. This was a technically difficult study with suboptimal views. The left ventricular size is normal. There is moderate concentric left ventricular hypertrophy. O verall left ventricular systolic function is normal with, an EF between 60 - 65 %. The right ventricle is mildly enlarged. The left atrial size is normal. The right atrium is normal in size. 3 ml of Lumason was utilized for enhancement of images. Interatrial and interventricular septum intact. The aortic valve is trileaflet and appears structurally normal. The mitral valve is normal. The tricuspid valve appears structurally normal. Trace/mild (physiologic) pulmonic regurgitation. The aortic root is dilated measuring 4.1cm. Normal inferior vena cava with normal inspiratory collapse consistent with estimated right atrial pre ssure of 5 mmHg. There is no pericardial effusion. CONCLUSIONS -------- 1. This was a technically difficult study with suboptimal views. 2. The left ventricular size is normal. 3. There is moderate concentric left ventricular hypertrophy. 4. Overall left ventricular systolic function is normal with, an EF between 60 - 65 %. 5. The right ventricle is mildly enlarged. 6. 3 ml of Lumason was utilized for enhancement of images. 7. Trace/mild (physiologic) pulmonic regurgitation. 8. The aortic root is dilated measuring 4.1cm. 9. There is no pericardial effusion. RFID SYSTEMS ENGINEER: Selma Richardson RDCS
--- NOTE | 2019-12-19 12:29 | P.PN ---
Subjective This is a pleasant 64-year-old male past medical history significant for hypertension, diabetes and dyslipidemia who was recently diagnosed with left sixth nerve palsy. He presented to the hospital with symptoms of chest discomfort. He is seen and examined sitting up in the chair in no acute distress. He continues to feel a headache. He denies chest pain, shortness of breath, dizziness or palpitations. He is scheduled to undergo an MRI of the brain today per neurology. Blood pressure 151/80 heart rate 60 afebrile maintaining oxygen saturation on room air. Echocardiogram reveals preserved LV systolic function with ejection fraction 60-65%. No wall motion abnormalities noted. GENERAL: Well-appearing, well-nourished and in no acute distress. NECK: Supple without JVD or thyromegaly. LUNGS: Breath sounds clear to auscultation bilaterally. Respiration equal and unlabored. No wheezes, rales or rhonchi. HEART: Regular rate and rhythm without murmurs, rubs or gallops. S1 and S2 heard. EXTREMITIES: Normal range of motion, no edema. No clubbing or cyanosis. Peripheral pulses intact. ASSESSMENT Chest pain Left sixth nerve palsy Hypertension, uncontrolled PLAN Brain MRI is pending. Continue current medical regimen. An acute event has been ruled out, no further symptoms of chest pain and no wall motion abnormalities noted. Nurse Practitioner note has been reviewed, I agree with a documented findings and plan of care. Patient was seen and examined. Objective - Vital Signs Vital signs: Vital Signs Temp 97.8 F 12/19/19 07:29 Pulse 60 12/19/19 08:32 Resp 16 12/19/19 08:32 BP 151/80 12/19/19 07:29 Pulse Ox 96 12/19/19 07:29 Intake & Output 12/18/19 12/19/19 12/19/19 18:59 06:59 18:59 Intake Total 722.716 240 Balance 722.716 240 Intake: Intake, IV Titration 82.716 Amount Heparin Sod,Pork in 0.45% 82.716 NaCl 25,000 unit In 0.45 % NaCl 1 250ml.bag @ 7. 655 UNITS/KG/HR 10 mls/hr IV .Q24H [facility] Rx#: [id number] Oral 640 240 Other: Voiding Method Toilet Toilet Toilet # Voids 1 1 1 - Labs CBC & Chem 7: 08/12/20 09:07 12/18/19 09:07 Labs: Abnormal Lab Results - Last 24 Hours (Table) 12/18/19 12/18/19 12/18/19 Range/Units 09:22 11:39 16:38 POC Glucose (mg/dL) 122 H 138 H (75-99) mg/dL Hemoglobin A1c 6.2 H (4.0-6.0) % 12/18/19 12/19/19 Range/Units 20:41 06:21 POC Glucose (mg/dL) 163 H 147 H (75-99) mg/dL Hemoglobin A1c (4.0-6.0) %
[2019-12-19 14:28] VITALS: BP 157/93; PULSE 54; TEMP 97.7
--- NOTE | 2019-12-19 16:01 | MR ---
EXAMINATION TYPE: MR brain wo/w con DATE OF EXAM: 12/19/2019 COMPARISON: CT brain from 9 days ago. HISTORY: Headache, Double vision, left lateral rectus palsy: Rule out any compression TECHNIQUE: Multiplanar, multisequence images of the brain and brainstem is performed without and with IV contras t, utilizing 13 mL intravenous Gadavist . FINDINGS: Exam noted slightly suboptimal as there is motion artifact degradation, repeat imaging is p erformed. Diffusion weighted images demonstrate no evidence of a recent infarct or other diffusion ab normality. There is no worrisome extra-axial fluid collection. Mild ventricular and sulcal prominenc e. Some vague area of T2 hyperintensity left deep white matter axial image 20 at level of west radi denise and additional few small scattered foci. Findings nonspecific. Midline structures demonstrate normal morphology. The craniocervical junction appears within normal limits. Post contrast images demonstrate no abnormal enhancement. The dural venous sinuses appear pa tent. The visualized sinuses are clear and the globes are intact. Nasal septal deviation redemonstrat ed. IMPRESSION: No MRI evidence for recent infarct. Mild diffuse age-related cerebral atrophy and nonspec [facility] white matter changes patent on the basis of product of chronic small vessel ischemic change in p atient this age. No suspicious enhancement is noted.
[2019-12-19 16:25] LABS: Glucose,Whole Blood 121 mg/dL (75-99)
--- NOTE | 2019-12-19 16:27 | P.PN ---
Subjective Progress Note Date: 12/19/19 Principal diagnosis: Left lateral rectus palsy Patient was seen at bedside and he feels the same as yesterday. He denies any new neurological symptoms denies of any weakness numbness any nausea vomiting. Denies of any blurry vision. Objective - Vital Signs Vital signs: Vital Signs Temp 97.7 F 12/19/19 14:27 Pulse 54 L 12/19/19 15:00 Resp 16 12/19/19 15:00 BP 157/93 12/19/19 14:27 Pulse Ox 96 12/19/19 14:27 Intake & Output 12/18/19 12/19/19 12/19/19 18:59 06:59 18:59 Intake Total 722.716 462 Balance 722.716 462 Intake: Intake, IV Titration 82.716 Amount Heparin Sod,Pork in 0.45% 82.716 NaCl 25,000 unit In 0.45 % NaCl 1 250ml.bag @ 7. 655 UNITS/KG/HR 10 mls/hr IV .Q24H [facility] Rx#: [id number] Oral 640 462 Other: Voiding Method Toilet Toilet Toilet # Voids 1 1 2 - Exam GENERAL: The patient is lying in bed and is not in acute distress. CHEST: The heart rate is regular rate rhythm. No murmurs to auscultation. LUNG: Clear to auscultation bilaterally no wheezing noted throughout. Not labored breathing. ABDOMEN/GI: Bowel sounds present in all 4 quadrants. No tenderness to palpation throughout. NEUROLOGICAL: Higher mental function: The patient is awake, alert, oriented to self, place and time. Patient is following simple and complex commands. No aphasia and no neglect. Cranial nerves: The pupils are round about 2mm bilaterally, equal and reactive to light and accommodation. Visual ramos are full to confrontation throughout. Visual acuity is 20/20 OD and 20/30 OS with correction. Primary gaze: Right eye is middle, while left eye is slightly medial deviated. Extraocular movement: There is restriction in movement of left eye looking to the left. No nystamgus is appreciated. Facial sensation is normal to touch throughout. The facial strength is normal throughout. Hearing is normal bilaterally to hand rub. Tongue is midline and moved qhpb-mr-qfdq without any difficulty. No dysarthria is noted. Shoulder shrug is normal bilaterally. Motor: Gait is normal with normal arm swings. The strength is 5 over 5 throughout. Normal tone and bulk. Cerebellum: Normal finger to nose bilaterally. Sensation: Sensation is normal to touch throughout. Reflexes (right/left): 2+ throughout except at ankles 1+ bilaterally. Plantars are downgoing bilaterally. - Labs CBC & Chem 7: 12/18/19 09:07 12/18/19 09:07 Labs: Abnormal Lab Results - Last 24 Hours (Table) 12/18/19 12/18/19 12/18/19 Range/Units 09:22 16:38 20:41 POC Glucose (mg/dL) 138 H 163 H (75-99) mg/dL Hemoglobin A1c 6.2 H (4.0-6.0) % 12/19/19 12/19/19 Range/Units 06:21 11:41 POC Glucose (mg/dL) 147 H 138 H (75-99) mg/dL Hemoglobin A1c (4.0-6.0) % Assessment and Plan Assessment: Mr. Davies is a 64-year-old right-handed gentleman with a medical history of hypertension (for 25 years), diabetes (since 2017), hyperlipidemia that presented to the ED on 12/17/2019 for reported chest pain. Neurology is consulted for left lateral rectus palsy since about 12/10/19. His has horizontal diplopia on both eyes and resolves with covering either eye. He also has headache over the bilateral frontal area. Otherwise denies any other neurolgical deficits. He was seen by his PCP and told his blood pressure was elevated. CT brain was done as outpatient and was negative. He seen an Ophthamologist and was told to follow-up back in 1-3months. Left lateral rectus palsy: Likely due to uncontrolled HTN, DM. Acute chest pain Uncontrolled hypertension Diabetes mellitus Plan: -CT of the head and an outpatient and was told was normal. -CTA of the head and neck since the patient had left arm weakness as well as the left lateral rectus palsy and it was reported as no significant stenosis in the aortic arch and thoracic arterial vessel. No significant stenosis in the common or internal carotid arteries bilaterally. No significant stenosis or aneurysm changes at the level of the [place]. -MRI Brain w/ and w/o: Is reported as no MRI evidence of recent infarct. Mild diffuse age-related cerebral atrophy and nonspecific white matter changes patent on the basis of product of chronic small vessel ischemic change in the patient's this age. No suspicious enhancement is noted. Hemoglobin A1c: 6.2. TSH: 0.961 Vitamin B12: 777 ESR:12 Patient is currently on Lipitor of 80 mg, he received 1 time aspirin of 324. For neurology team the patient does not need to be on Lipitor the high unless the primary team or cardiology recommend it. Patient needs to follow up with an Inspector Of Weights And Measures as well as a neurologist upon discharge. Patient is cleared from neurology perspective. Regarding the patient's chest pain, hypertension and diabetes we'll defer the management to the primary team. Teo Aguilar M.D. neuro- hospitalist Time with Patient: Less than 30
--- NOTE | 2019-12-19 17:10 | P.PN ---
Subjective Progress Note Date: 12/18/19 Principal diagnosis: Lateral rectus muscle left-sided Chest pain next uncontrolled hypertension Patient is a 64-year-old male with a known history of hypertension, hyperlipidemia, diabetes type 2 doo-otyplyp-qtdajhgyn, sigmoid diverticulosis and previous stress test in 2014- for any inducible ischemia presents to ER with the complaints of chest pain. Patient states that at around 6 AM this morning patient started having left retrosternal chest pain, pressure-like sensation and radiating down the left arm. Patient states he had left arm numbness and tingling. Denied any complaints of nausea vomiting . no shortness of breath along with chest pain. Minimal diaphoresis. No cough or sputum production. No fever no chills. Denies any recent infections. Patient states that he developed double vision with left lateral rectus muscle paralysis and was seen by ophthalmology. Patient was seen by his PCP and CT head was negative. Patient followed up with Dr. Hernandez on Monday and full eye exam was performed. Patient did not get a chance to see a neurologist as of now. Denies any headache. Denied any focal weakness.Denied history of arrhythmia. No palpitations. Patient states that he has been having trouble controlling blood pressure recently and was placed on hydralazine twice daily by his PCP. CT angiogram of the head, neck and chest showed no significant stenosis in the aortic arch and thoracic arterial vessels. No significant stenosis in, not internal carotid arteries bilaterally. No significant stenosis or aneurysmal change of the level of the [place]. EKG showed sinus bradycardia Laboratory data showed WBC 10.8, hemoglobin 15.2, platelets 205 INR 0.9 Sodium 139, potassium 4.3, bicarb is 24, BUN 15 and creatinine 0.7 Troponin x2- Alk phos 156. AST ALT within normal limits. proBNP 101 Lipase level is 124 12/18/2019 Patient is currently lying in bed comfortably. Still having headache on and off. Was started on [place] 5. Patient did have 2-D echocardiogram showed ejection fraction 60-65%. Seen by neurology and cardiology. Continue to titrate blood pressure medications. MRI of the brain was ordered. Patient had CT head and CT angiogram was done in the ER showed no significant stenosis or acute process. Vitamin B12 and TSH levels within normal limits. A1c 6.2. Current medications reviewed. Objective - Vital Signs Vital signs: Vital Signs Temp 97.8 F 12/18/19 15:00 Pulse 59 L 12/18/19 15:00 Resp 16 12/18/19 15:00 BP 165/97 12/18/19 15:00 Pulse Ox 97 12/18/19 15:00 Intake & Output 12/18/19 12/18/19 12/19/19 06:59 18:59 06:59 Intake Total 146.761 722.716 Balance 146.761 722.716 Intake: Intake, IV Titration 146.761 82.716 Amount Heparin Sod,Pork in 0.45% 146.761 82.716 NaCl 25,000 unit In 0.45 % NaCl 1 250ml.bag @ 7. 655 UNITS/KG/HR 10 mls/hr IV .Q24H [facility] Rx#: [id number] Oral 640 Other: Voiding Method Toilet Toilet # Voids 1 1 - Exam PHYSICAL EXAMINATION: Patient is lying in the bed comfortably, no acute distress, awake alert and oriented.. HEENT: Normocephalic. Neck is supple. Pupils reactive. Nostrils clear. Oral cavity is moist. Ears reveal no drainage. Neck reveals no JVD, carotid bruits, or thyromegaly. CHEST EXAMINATION: Trachea is central. Symmetrical expansion. Lung ramos clear to auscultation and percussion. CARDIAC: Normal S1, S2 with no gallops. No murmurs ABDOMEN: Soft. Bowel sounds normal. No organomegaly. No abdominal bruits. Extremities: reveal no edema. No clubbing or cyanosis Neurologically awake, alert, oriented x3 with well-coordinated movements.Left lateral rectus muscle paralysis. Motor strength 5 x 5 in all 4 extremities. Skin: No rash or skin lesions. Psychiatric: Coperative. Nonsuicidal Musculoskeletal: No joint swelling or deformity. Normal range of motion. - Labs CBC & Chem 7: 12/18/19 09:07 12/18/19 09:07 Labs: Abnormal Lab Results - Last 24 Hours (Table) 12/18/19 12/18/19 12/18/19 Range/Units 00:27 06:51 09:07 WBC 11.0 H (3.8-10.6) k/uL Neutrophils # 8.4 H (1.3-7.7) k/uL APTT 78.1 H (22.0-30.0) sec Glucose (74-99) mg/dL POC Glucose (mg/dL) 147 H (75-99) mg/dL Hemoglobin A1c (4.0-6.0) % 12/18/19 12/18/19 12/18/19 Range/Units 09:07 09:22 11:39 WBC (3.8-10.6) k/uL Neutrophils # (1.3-7.7) k/uL APTT (22.0-30.0) sec Glucose 173 H (74-99) mg/dL POC Glucose (mg/dL) 122 H (75-99) mg/dL Hemoglobin A1c 6.2 H (4.0-6.0) % 12/18/19 12/18/19 Range/Units 16:38 20:41 WBC (3.8-10.6) k/uL Neutrophils # (1.3-7.7) k/uL APTT (22.0-30.0) sec Glucose (74-99) mg/dL POC Glucose (mg/dL) 138 H 163 H (75-99) mg/dL Hemoglobin A1c (4.0-6.0) % Assessment and Plan Assessment: Atypical chest pain. Ruled out ACS.. Recent left lateral rectus muscle palsy with double vision. CT head was negative as an outpatient. Ruled out acute CVA. Hypertensive urgency on admission Hyperlipidemia Diabetes type 2 nle-xykhovt-kyemvokgo Sigmoid diverticulosis Morbid obesity with BMI 39.1 DVT prophylaxis Plan: Patient will be continued on telemetry monitoring. Serial EKG and troponin x3. Patient was started on heparin drip. We will start back on lisinopril, hydralazine and verapamil as per his home dose. Patient was admitted with hydrochlorothiazide.. Cardiology and neurology is following. Patient does not have any history of arrhythmia. Continue with aspirin and statins. Follow-up closely. Time with Patient: Greater than 30
--- NOTE | 2019-12-22 09:01 | CDI ---
Documentation Clarification Form Date: 12/22/19 From: Itzel Ward CCS Phone: If you have a question about this query, please contact Tanja Hicks, Plate And Frame Filter Operator at [phone] between 8am and 5pm. Admit Date: 12/19/19 Discharge Date:12/19/19 Patient Name: Piero Davies Visit Number: [id number] ATTENTION: The Clinical Documentation Specialists (CDI) and [facility] Coding Staff appreciate your assistance in clarifying documentation. Please respond to the clarification below the line at the bottom and electronically sign. The CDI & [facility] Coding staff will review the response and follow-up if needed. Please note: Queries are made part of the Legal Health Record. If you have any questions, please contact the author of this message via ITS. Dear Dr. Hallman, Chest pain is documented in the ED, H&P, Consult, PNs. Patient C/O: His chest discomfort is precordial, left sided, mild intensity, unrelated to exertion, also with diaphoresis. History/Risk factors: Hypertensive urgency, Morbid obesity, DM, Sixth nerve palsy, Bradycardia Clinical Indicators: Precordial chest pain Labs: Troponin 0.012 Echo: The left ventricular size is normal.There is moderate concentric left ventricular hypertrophy.Overall left ventricular systolic function is normal with, an EF between 60 - 65 %. Treatment: Heparin SQ Q12HR, Heparin IV Consults: Carmine In your professional opinion, can please clarify if the chest pain signifies, or is due to: Hypertensive urgency CAD with angina (specify vessel and type of angina if known) Cardiac arrhythmias (specify type if known) Chest wall pain Psychogenic chest pain Other condition, please specify Unable to determine Hypertensive urgency MTDD
--- NOTE | 2020-01-02 23:16 | P.DS ---
Providers Date of admission: 12/19/19 15:11 Expected date of discharge: 12/19/19 Attending physician: Huma Babb Consults: 12/17/19 12:23 Consult Physician Urgent Consulting Provider: [facility] Consult Reason/Comments: acute chest pain, possible acs, acc htn Do you want consulting provider notified?: Yes 12/17/19 17:49 Consult Physician Routine Consulting Provider: Teo Aguilar Consult Reason/Comments: left eye sixth nerve palsy/ double vision Do you want consulting provider notified?: Yes Primary care physician: Marcelo Maharaj Hospital Course: Discharge diagnosis Atypical chest pain. Ruled out ACS.. Recent left lateral rectus muscle palsy with double vision. CT head was negative as an outpatient. Ruled out acute CVA. MRI was negative. Hypertensive urgency on admission Hyperlipidemia Diabetes type 2 wrw-bbwglmp-sboaseqck Sigmoid diverticulosis Morbid obesity with BMI 39.1 DVT prophylaxis Hospital course Patient is a 64-year-old male with a known history of hypertension, hyperlipidemia, diabetes type 2 zcr-aeozoqz-hazpdlapg, sigmoid diverticulosis and previous stress test in 2014- for any inducible ischemia presents to ER with the complaints of chest pain. Patient states that at around 6 AM this morning patient started having left retrosternal chest pain, pressure-like sensation and radiating down the left arm. Patient states he had left arm numbness and tingling. Denied any complaints of nausea vomiting . no shortness of breath along with chest pain. Minimal diaphoresis. No cough or sputum production. No fever no chills. Denies any recent infections. Patient states that he developed double vision with left lateral rectus muscle paralysis and was seen by ophthalmology. Patient was seen by his PCP and CT head was negative. Patient followed up with Dr. Hernandez on Monday and full eye exam was performed. Patient did not get a chance to see a neurologist as of now. Denies any headache. Denied any focal weakness.Denied history of arrhythmia. No palpitations. Patient states that he has been having trouble controlling blood pressure recently and was placed on hydralazine twice daily by his PCP. CT angiogram of the head, neck and chest showed no significant stenosis in the aortic arch and thoracic arterial vessels. No significant stenosis in, not internal carotid arteries bilaterally. No significant stenosis or aneurysmal change of the level of the [place]. EKG showed sinus bradycardia Laboratory data showed WBC 10.8, hemoglobin 15.2, platelets 205 INR 0.9 Sodium 139, potassium 4.3, bicarb is 24, BUN 15 and creatinine 0.7 Troponin x2- Alk phos 156. AST ALT within normal limits. proBNP 101 Lipase level is 124 12/18/2019 Patient is currently lying in bed comfortably. Still having headache on and off. Was started on [place] 5. Patient did have 2-D echocardiogram showed ejection fraction 60-65%. Seen by neurology and cardiology. Continue to titrate blood pressure medications. MRI of the brain was ordered. Patient had CT head and CT angiogram was done in the ER showed no significant stenosis or acute process. Vitamin B12 and TSH levels within normal limits. A1c 6.2. 12/18/2019 Patient is currently sitting on chair comfortably. Denied any complaints of chest pain or shortness breath. No chest tightness. Blood pressure is better controlled. MRI of the brain was done showed no evidence of recent infarct. Mild diffuse age-related cerebral atrophy and nonspecific white matter changes patient only basis of product of chronic small vessel ischemic change in the patient this age. No suspicious enhancement is noted. Discharge medication reconciliation was done and cleared from cardiology and neurology standpoint. PHYSICAL EXAMINATION: Patient is lying in the bed comfortably, no acute distress, awake alert and oriented.. HEENT: Normocephalic. Neck is supple. Pupils reactive. Nostrils clear. Oral cavity is moist. Ears reveal no drainage. Neck reveals no JVD, carotid bruits, or thyromegaly. CHEST EXAMINATION: Trachea is central. Symmetrical expansion. Lung ramos clear to auscultation and percussion. CARDIAC: Normal S1, S2 with no gallops. No murmurs ABDOMEN: Soft. Bowel sounds normal. No organomegaly. No abdominal bruits. Extremities: reveal no edema. No clubbing or cyanosis Neurologically awake, alert, oriented x3 with well-coordinated movements.Left lateral rectus muscle paralysis. Motor strength 5 x 5 in all 4 extremities. Skin: No rash or skin lesions. Psychiatric: Coperative. Nonsuicidal Musculoskeletal: No joint swelling or deformity. Normal range of motion. Vital Signs Temp 97.7 F 12/19/19 14:27 Pulse 54 L 12/19/19 15:00 Resp 16 12/19/19 15:00 BP 157/93 12/19/19 14:27 Pulse Ox 96 12/19/19 14:27 Intake & Output 12/18/19 12/19/19 12/19/19 18:59 06:59 18:59 Intake Total 722.716 462 Balance 722.716 462 Intake: Intake, IV Titration 82.716 Amount Heparin Sod,Pork in 0.45% 82.716 NaCl 25,000 unit In 0.45 % NaCl 1 250ml.bag @ 7. 655 UNITS/KG/HR 10 mls/hr IV .Q24H [facility] Rx#: [id number] Oral 640 462 Other: Voiding Method Toilet Toilet Toilet # Voids 1 1 2 Patient Condition at Discharge: Stable Plan - Discharge Summary Discharge Rx Participant: No New Discharge Prescriptions: New hydroCHLOROthiazide [Hydrodiuril] 25 mg PO DAILY #30 tab Continue Aspirin 81 mg PO DAILY atenoloL [Tenormin] 100 mg PO HS lisinopriL 40 mg PO BID Atorvastatin Calcium [Lipitor] 80 mg PO HS Nabumetone [Relafen] 750 mg PO BID Multivitamin [Men's Multi-Vitamin] 1 tab PO DAILY traZODone HCL 100 mg PO HS hydrALAZINE HCL [Apresoline] 50 mg PO BID Verapamil HCl [Verapamil ER] 240 mg PO BID Ascorbic Acid [Vitamin C] 500 mg PO DAILY traMADol HCL 50 mg PO BID PRN PRN Reason: Pain Discharge Medication List Aspirin 81 mg PO DAILY 09/02/14 [History] Atorvastatin Calcium [Lipitor] 80 mg PO HS 09/02/14 [History] Multivitamin [Men's Multi-Vitamin] 1 tab PO DAILY 09/02/14 [History] Nabumetone [Relafen] 750 mg PO BID 09/02/14 [History] atenoloL [Tenormin] 100 mg PO HS 09/02/14 [History] lisinopriL 40 mg PO BID 09/02/14 [History] Ascorbic Acid [Vitamin C] 500 mg PO DAILY 12/17/19 [History] Verapamil HCl [Verapamil ER] 240 mg PO BID 12/17/19 [History] hydrALAZINE HCL [Apresoline] 50 mg PO BID 12/17/19 [History] traMADol HCL 50 mg PO BID PRN 12/17/19 [History] traZODone HCL 100 mg PO HS 12/17/19 [History] hydroCHLOROthiazide [Hydrodiuril] 25 mg PO DAILY #30 tab 12/19/19 [Rx] Follow up Appointment(s)/Referral(s): Marcelo Maharaj DO [Primary Care Provider] - 1-2 days Wing Lou MD [STAFF PHYSICIAN] - 2 Weeks (office will call you at home with appointment.) Activity/Diet/Wound Care/Special Instructions: pt has a list of neurologist in the area. pt is to follow up with his accounts payable administrator. Discharge Disposition: HOME SELF-CARE
== END 2019-12-19 17:44 | disposition home or self-care (01) ==
LOC: EC 09:06 → 3NCARDOBS 12:23 → INTOOBSV 12-19 15:11 → OBSVTOIN 12-19 15:11 → UNDODISIN 12-19 17:44
PROVIDERS: ADMIT Internal Medicine; ATTEND Internal Medicine
DX: I16.0 Hypertensive urgency (principal); H49.22 Sixth [abducent] nerve palsy, left eye; E78.5 Hyperlipidemia, unspecified; E11.9 Type 2 diabetes mellitus without complications; K57.30 Diverticulosis of large intestine without perforation or abscess without bleeding; E66.01 Morbid (severe) obesity due to excess calories; R00.0 Tachycardia, unspecified; I10 Essential (primary) hypertension; E55.9 Vitamin D deficiency, unspecified; R51 Headache; G31.9 Degenerative disease of nervous system, unspecified; F02.80 Dementia in other diseases classified elsewhere, unspecified severity, without behavioral disturbance, psychotic disturbance, mood disturbance, and anxiety; R90.82 White matter disease, unspecified; R00.1 Bradycardia, unspecified; Z79.82 Long term (current) use of aspirin; Z79.899 Other long term (current) drug therapy; Z79.1 Long term (current) use of non-steroidal anti-inflammatories (NSAID); Z91.030 Bee allergy status; Z88.0 Allergy status to penicillin; Z87.19 Personal history of other diseases of the digestive system; Z86.010 Personal history of colon polyps; Z98.890 Other specified postprocedural states; Z68.39 Body mass index [BMI] 39.0-39.9, adult; Z82.49 Family history of ischemic heart disease and other diseases of the circulatory system; Z80.1 Family history of malignant neoplasm of trachea, bronchus and lung
CPT/HCPCS: 93005 ×2; 96366 ×3; 96372 ×2; 96375 ×2; 96376 ×2; 96365; 99285; 36415; 93306; 83880; 80053; 80048; 85652; 84443; 82607; 83690; 83735; 84484; 85025 ×2; 85610; 85730 ×2; 83036; 70496; 70498; 71275; 70553; G0378 ×3; J2060; J1644 ×4; J2405; A9585; Q9950; Q9967 ×2

== ENCOUNTER → 2020-03-02 | Outpatient (CLI) | payer BC | END | disposition home or self-care (01) | LOC: LABWHC1 12:36 | PROVIDERS: ATTEND Family Medicine | DX: Z20.828 Contact with and (suspected) exposure to other viral communicable diseases (principal) | CPT/HCPCS: U0003; C9803 ==

== ENCOUNTER → 2020-11-09 | Outpatient (CLI) | payer BC ==
--- NOTE | 2020-12-21 15:46 | EM ---
30 Day Event monitor note: Patient wore an event monitor for 28 days from 11/09/2020 until 12/06/2020. Findings: Patient's baseline heart rate was sinus rhythm. There were no signficant atrial fibrillation, atrial flutter, or ventricular tachycardia episodes. There were no significant pauses greater than 2 seconds. Patient had a total of 70 patient activated and automatically captured events. Approximately half of these events were patient activated with the majority being "irregular beats or flutter "with some corresponding with sinus rhythm and some corresponding with PACs as well as PVCs. Patient also had asymptomatic short bursts of 4-10 beats of SVT which were predominantly asymptomatic. Conclusions: 30 day event monitor showing normal sinus rhythm with symptoms of "irregular beats or flutter "corresponding with PACs and PVCs. Patient also with asymptomatic short 4-10 beat runs of SVT. [facility]
== END | disposition home or self-care (01) ==
LOC: RADECHMAIN 12:07
PROVIDERS: ATTEND Family Medicine
DX: R00.2 Palpitations (principal); I10 Essential (primary) hypertension
CPT/HCPCS: 93270

== ENCOUNTER → 2021-07-02 | Day surgery (SDC) | payer BC ==
[2021-07-01 11:00] VITALS: BMI 41.8
[~2021-07-02] MED LIST: IV FLUID CONTINUATION 1,000 ML IV ONE; LACTATED RINGERS 1,000 ML IV SCH; LIDOCAINE 1% (10MG/ML) FOR IV START INTRADERMA PRN; MIDAZOLAM 2 MG/2 ML VIAL ONE; ROPIVACAINE 5MG/ML 20ML VIAL ONE; fentaNYL (PF) 50 MCG/ML 2 ML AMP ONE; methylPREDNISolone ACETATE 40 MG/ML 1 ML VIAL ONE
[2021-07-02 07:17] VITALS: TEMP 98.8
[2021-07-02 07:27] LABS: Glucose,Whole Blood 153 mg/dL (75-99)
--- NOTE | 2021-07-02 08:41 | P.PCN ---
Date of Procedure: 07/02/21 Procedure(s) Performed: PREOPERATIVE DIAGNOSIS: 1-Lumbar Spondylosis with Facet Arthropathy without myelopathy. 2- Lumber degenerative disc disease. POSTOPERATIVE DIAGNOSIS: 1- Lumbar Spondylosis with Facet Arthropathy without myelopathy. 2- Lumber degenerative disc disease. PROCEDURES : Bilateral Radiofrequency thermocoagulation, L3 , L4 , and L5 medial branch, with fluoroscopic guidance (fluoroscopy images available in the radiology department) ANESTHESIA: Monitored anesthesia care as per anesthesia department . EBL: Minimal PROCEDURE INDICATION: The patient with low back pain secondary to lumbar facet arthropathy who had more than 50% relief of her pain with previous diagnostic lumbar medial branch block with bupivacaine. PROCEDURE DESCRIPTION / TECHNIQUE: The patient was seen and identified in the preoperative area. Risks, benefits, complications, including but not limited to risk of infection ,bleeding , allergic reactions to the medications and no complete pain releife , and alternatives were discussed with the patient, the patient agreed to proceed with the procedure and signed the consent. IV was started. Vital signs remained stable throughout the procedure. Patient was taken to the OR and time out was completed. The patient was placed in the prone position on the procedure table. The lumber area was prepped and draped in the usual sterile fashion. . Vital signs were closely monitored during the procedure .IV sedation was used during the procedure to decrease patients anxiety. Using AP and then oblique fluoroscopy, the ``eye of the [place] dog corresponding to the connection between the superior and transverse articular p rocesses of right L3, L4, and L5 were identified, marked, and localized with 1% lidocaine. Subsequently, a 18 -dv radiofrequency cannula with a 10- mm active tip was advanced guided by fluoroscopy to each of the``eyes of the [place] dog at right L3, L4, and L5. Each site then underwent sensory testing at 50 Hz and 0 to 1 volt and motor testing at 2.5 Hz and 0 to 3 volt with local stimulation, but no radicular symptoms down the legs. Thereafter each sites underwent radiofrequency thermocoagulation at 80 degrees celsius for 90 seconds after injecting 0.5 ml of PF Ropivacaine 1ml, then after the thermocoagulation done , 1 ml of the block solution containing Depo-Medrol 20 mg and 3 ml of Ropivacaine 0.5% was injected at the right L3 , L4 , and L5 , levels after negative aspiration of CSF and blood and with no paresthesias. Cannulas were retracted while injecting lidocaine 1% until the needle is out. The same procedure was repeated at the level of Left L3, L4, and L5 levels. At the end of the procedure, the skin was cleansed and bandages were applied. COMPLICATIONS: No acute complications. DISPOSITION / PLANS: The patient was placed in a supine position and andres sferred to the recovery area in a stable condition for observation and was discharged from the recovery room after meeting discharge criteria. Home discharge instructions given to the patient by the staff. The patient was reexamined prior to discharge. The patient will schedule a follow up in the clinic in 2-4 weeks.
[2021-07-02 09:05] VITALS: BP 145/75; PULSE 49; RESP 17
== END ==
LOC: ORPAIN 06:40
PROVIDERS: ATTEND Specialist
DX: M47.816 Spondylosis without myelopathy or radiculopathy, lumbar region (principal); M51.36 Other intervertebral disc degeneration, lumbar region
CPT/HCPCS: 64635; 64636; J2250; J1030; J3010; J2795

== ENCOUNTER → 2021-07-07 | Outpatient (CLI) | payer BC ==
--- NOTE | 2021-07-07 09:59 | P.PN ---
Subjective Progress Note Date: 07/07/21 Principal diagnosis: A 65 yr old malewith a history of severe and chronic low back pain secondary to lumbar degenerative disc diseases and lumbar spondylosis with facet arthropathy presents today for valuation status post bilateral RFA of the L3-L4, L4-L5. Patient states that the procedure was ineffective in managing his pain. States he feels soreness in the lower aspect of his lumbar spine and accompanying paraspinal muscles bilaterally with pain level at 10 out of 10 in intensity. Also admits to radiating pain of a fiery, electrical feeling down the right lower extremity to the dorsum of his foot. He uses a cane now to offset weightbearing for pain relief and ambulatory assistance. Pain is provoked by weight bearing. Pain is alleviated with medications, topicals, injections, ice, use of a cane for ambulation, repositioning and rest. Interventional pain procedures completed include lumbar RFA L3-L4, L4-L5 Patient is currently on tramadol 50 mg, Tylenol OTC, Motrin OTC Patient denies any side effects of the medication(s), denies excessive drowsiness or sleepiness, denies suicidal ideation and reports that the current pain medication is helping to control the pain and improve activities of daily living. Patient denies any motor or sensory deficits. Patient denies any fever or night sweats, denies any change in the bowel movements or urination. Physical Examination: -Constitutional: Cooperative. Not in acute distress . -HEENT: Neck is supple. No lymphadenopathy. No thyromegaly. Normal thyroid size. Eyes: No ptosis , no icterus, no photophobia. ENT: No auditory deficits. Normal oropharynx. No Thrush. - Respiratory: Chest clear to auscultations bilaterally. No wheezing. No rhonchi. - Cardiovascular: Regular rate and rhythm. S1 / S2 , no S3 , no S4. - Gastrointestinal: Abdomen soft no tenderness. Bowel sounds positive in all four quadrants. No organomegaly. - Genitourinary: Deferred. - Neurologic: Cranial nerve II to XII intact. No focal neurological deficits. - Psychatric: Alert & oriented x 3. Matching mood & appropriate affect. Judgment and insight intact. - Lymphatic: No Lymphadenopathy. - Musculoskeletal: Cervical spine: Muscle bulk/ tone/ strength in the bilateral upper extremities normal. Facet loading test cervical area positive. Lumbar spine: Motor bulk/ tone/ strength lower extremities , thigh and legs : 5/5 Deep tendon reflexes : Normal Knee Jerk. Normal Ankle Jerk . Vertebral body tenderness to palpation over L5 accompanying jump reflex and paraspinal muscle spasm Lumbar Facet Loading Test positive Straight Leg Raise: positive at 30 degrees right side/ left side Gaenslen's Test positive Sacral spine : Severe tenderness over the Sacroiliac joint: right side / left side Range of motion: Flexion of the lumbar spine <60 degrees Range of motion: Extension of the lumbar spine <20 degrees Gaenslen's Test positive Mar test: positive right side / left side Assessment and plan: Chronic low back pain secondary to lumbar degenerative disc disease , lumbar spondylosis with facet arthropathy without myelopathy Recommendation of injection of the iliolumbar ligament. Chronic and current use of high-risk medication (Opioids). The patient was counseled about risk of opioid use, psychological risk associated with opioids and was orally counseled to not overuse , divert or sell medications. Pt is to store medication in a safe location. The patient is counseled against driving while using narcotic medications and also not to use alcohol or any illicit recreational drugs. Patient verbalized understanding that the lack of compliance will result in failure to renew narcotic prescription(s) as well as possible discharge from the clinic Diagnoses, prognosis and treatment options including but not limited to physical therapy, surgical interventions, interventional therapies and medication management including narcotics and adjuvant medication were discussed. All patient questions answered MAPS reviewed and it was appropriate. Prescription for Neurontin 300 mg #60 with 1 refill. Opiate agreement signed in up-to-date. I have spent 31 minutes on patient care today. Dr Turpin was available by phone for the evaluation of this patient. The time was used to review the medical records including relevant urine studies and Prescription history (MAPs), review of the available imaging, evaluation and examination of the patient, coordination of care with the medical staff and if applicable referring physicians, as well as creation of the medical record PQRS Measure Charge Sheet PQRS Narrative: Smoking Status Never smoker Hx Alcohol Use (MH) No Home Medications: Ambulatory Orders Aspirin 81 mg PO DAILY 09/02/14 Atorvastatin Calcium [Lipitor] 80 mg PO HS 09/02/14 Multivitamin [Men's Multi-Vitamin] 1 tab PO DAILY 09/02/14 atenoloL [Tenormin] 100 mg PO HS 09/02/14 lisinopriL 40 mg PO BID 09/02/14 Ascorbic Acid [Vitamin C] 500 mg PO DAILY 12/17/19 Verapamil HCl [Verapamil ER] 240 mg PO BID 12/17/19 hydrALAZINE HCL [Apresoline] 50 mg PO TID 12/17/19 traMADol HCL 50 mg PO BID PRN 12/17/19 traZODone HCL 100 mg PO HS 12/17/19 hydroCHLOROthiazide [Hydrodiuril] 25 mg PO DAILY #30 tab 12/19/19 Celecoxib [CeleBREX] 200 mg PO BID 05/19/21 Androgel (Unknown Dose) 1 dose TOPICAL DAILY 07/01/21 Gabapentin [Neurontin] 300 mg PO BID 30 Days #60 cap 07/07/21
[2021-07-07 11:05] VITALS: BP 180/87; PULSE 57; RESP 18; TEMP 97.9
== END | disposition home or self-care (01) ==
LOC: PNWHC3 08:32
PROVIDERS: ATTEND Anesthesiology
DX: M47.896 Other spondylosis, lumbar region (principal); M51.36 Other intervertebral disc degeneration, lumbar region
CPT/HCPCS: 99211

== ENCOUNTER → 2021-11-04 | Outpatient (CLI) | payer BC ==
--- NOTE | 2021-11-04 15:41 | XR ---
EXAMINATION TYPE: XR chest 2V DATE OF EXAM: 11/04/2021 COMPARISON: NONE TECHNIQUE: PA and lateral views submitted. HISTORY: Presurgical testing FINDINGS: The lungs are clear and there is no pneumothorax, pleural effusion, or focal pneumonia. Heart size normal. No overt failure. Biapical pleural thickening. Hypertrophic and degenerative change of the sp ine. IMPRESSION: 1. No acute process.
== END | disposition home or self-care (01) ==
LOC: LABPAT 14:40
PROVIDERS: ATTEND Orthopaedic Surgery Orthopaedic Surgery of the Spine
DX: Z01.812 Encounter for preprocedural laboratory examination (principal); M48.061 Spinal stenosis, lumbar region without neurogenic claudication
CPT/HCPCS: 71046

== ENCOUNTER 2021-11-15 11:03 | Inpatient (IN) | payer BC ==
[2021-11-04 15:40] LABS: Partial Thromboplastin Time 24.6 sec (22.0-30.0); Prothrombin Time 10.5 sec (9.0-12.0)
[2021-11-04 15:55] LABS: Appearance,Urine Clear (Clear); Bilirubin,Urine Negative (Negative); Blood,Urine Negative (Negative); Color,Urine Yellow; Glucose,Urine (UA) Negative (Negative); Ketones,Urine Negative (Negative); Leukocyte Esterase,Urine Negative (Negative); Nitrite,Urine Negative (Negative); PH, Urine 5.5 (5.0-8.0); Protein,Urine Negative (Negative); Specific Gravity,Urine 1.023 (1.001-1.035); Urobilinogen,Urine <2.0 mg/dL (<2.0)
[2021-11-05 07:41] LABS: African American GFR (CKD) 81.8 (60.0-200.0); Anion Gap 11.9 mmol/L (10.00-18.00); BUN/Creat Ratio 24.18 Ratio (12.00-20.00); Basophils # (A) 0.03 X 10*3/uL (0.00-0.10); Basophils % (A) 0.3 %; Blood Urea Nitrogen 26.6 mg/dL (9.0-27.0); Calcium 9.3 mg/dL (8.7-10.3); Carbon Dioxide 24.5 mmol/L (20.0-27.5); Eosinophils # (A) 0.14 X 10*3/uL (0.04-0.35); Eosinophils % (A) 1.3 %; HCT 38.5 % (39.6-50.0); HGB 12.8 g/dL (13.0-17.0); Immature Grans, Automated 0.7 %; Lymphocytes % (A) 16.8 %; MCH 29.8 pg (27.0-32.0); MCHC 33.2 g/dL (32.0-37.0); MCV 89.5 fL (80.0-97.0); Mean Platelet Volume 11.2 fL (9.5-12.2); Monocytes # (A) 0.83 X 10*3/uL (0.20-1.00); Monocytes % (A) 7.7 %; NRBC Per 100 WBC 0 /100 WBCS (0.0-0.0); Neutrophils # (A) 7.84 X 10*3/uL (1.80-7.70); Neutrophils % (A) 73.2 %; Non-African American GFR(CKD) 70.6 (60.0-200.0); Platelet Count 233 X 10*3/uL (140-440); Potassium 3.6 mmol/L (3.5-5.5); RDW 12.3 % (11.5-14.5); WBC 10.71 X 10*3/uL (4.50-10.00)
[2021-11-10 09:42] VITALS: BMI 42.7
[~2021-11-15 11:03] MED LIST changes: +DEXAMETHASONE SOD PHOSPHATE 4 MG/ML 1 ML VIAL IV ONE; +HYDROmorphone 0.5 MG/0.5 ML SYRINGE IVP PRN; -IV FLUID CONTINUATION 1,000 ML IV ONE; -LACTATED RINGERS 1,000 ML IV SCH; -LIDOCAINE 1% (10MG/ML) FOR IV START INTRADERMA PRN; +MIDAZOLAM 2 MG/2 ML VIAL IV PRN; -MIDAZOLAM 2 MG/2 ML VIAL ONE; +ONDANSETRON 4 MG/2 ML VIAL IVP ONE; -ROPIVACAINE 5MG/ML 20ML VIAL ONE; +SCOPOLAMINE 1 MG/72 HR PATCH TRANSDERM ONE; +ceFAZolin 1,000 MG in SODIUM CHLORIDE 0.9% IRRIGATIO 1,000 ML IRRIGATION PRN; +ceFAZolin 3 GM in SODIUM CHLORIDE 0.9% 100 ML IVPB PRN; -fentaNYL (PF) 50 MCG/ML 2 ML AMP ONE; -methylPREDNISolone ACETATE 40 MG/ML 1 ML VIAL ONE
[2021-11-15 11:45] LABS: Glucose,Whole Blood 132 mg/dL (70-110)
[2021-11-15] MEDS: LACTATED RINGERS 1,000 ML IV SCH (11:46)
[2021-11-15] MEDS ORDERED: LIDOCAINE 1% (10MG/ML) FOR IV START INTRADERMA ONE (11:47)
[2021-11-15] MEDS ORDERED: ePHEDrine 50 MG/ML 1 ML VIAL ONE (12:37)
[2021-11-15] MEDS ORDERED: LIDOCAINE 2% INJ 20 MG/ML (2 ML VIAL) ONE (12:37)
[2021-11-15] MEDS ORDERED: MIDAZOLAM 2 MG/2 ML VIAL ONE (12:37)
[2021-11-15] MEDS ORDERED: SODIUM CHLORIDE 0.9% IRRIG 1,000 ML BTL IRRIGATION ONE (12:37)
[2021-11-15] MEDS ORDERED: HYDROmorphone (PF) 1 MG/ML ONE (12:37)
[2021-11-15] MEDS ORDERED: HEPARIN SODIUM,PORCINE 10,000 UNIT/ML 1 ML VIAL ONE (12:37)
[2021-11-15] MEDS ORDERED: fentaNYL (PF) 50 MCG/ML 2 ML AMP ONE (12:37)
[2021-11-15] MEDS ORDERED: SUCCINYLCHOLINE CHLORIDE VIAL 200 MG/10 ML VIAL IV ONE (12:37)
[2021-11-15] MEDS ORDERED: NEOSTIGMINE 1 MG/ML 10 ML VIAL ONE (12:37)
[2021-11-15] MEDS ORDERED: LIDOCAINE 4% LTA KIT (4 ML) TOPICAL ONE (12:37)
[2021-11-15] MEDS ORDERED: GLYCOPYRROLATE 0.2 MG/ML 2 ML VIAL ONE (12:37)
[2021-11-15] MEDS ORDERED: PHENYLEPHRINE-0.9% NACL SYG 1,000 MCG/10 ML SYRINGE ONE (12:37)
[2021-11-15] MEDS ORDERED: PROPOFOL 10 MG/ML 20 ML VIAL IV ONE (12:37)
[2021-11-15] MEDS ORDERED: ROCURONIUM 10 MG/ML (5 ML VIAL) IV ONE (12:37)
[2021-11-15] MEDS ORDERED: LIDOCAINE 0.5%-EPI 1:200,000 50 ML VIAL SQ ONE (12:42)
[2021-11-15] MEDS ORDERED: THROMBIN (BOVINE) 5,000 UNIT VIAL TOPICAL ONE (12:42)
[2021-11-15] MEDS ORDERED: GELATIN SPONGE,ABSORB (LARGE) 1 EACH SPONGE TOPICAL ONE (12:42)
[2021-11-15] MEDS ORDERED: LACTATED RINGERS 1,000 ML IV ONE ×2 (13:46→16:46)
[2021-11-15] MEDS ORDERED: SODIUM CHLORIDE 0.9% 50 ML with ceFAZolin 3,000 MG IV ONE ×2 (16:46)
[2021-11-15] MEDS ORDERED: MAGNESIUM HYDROXIDE 2,400 MG/10 ML CUP PO PRN ×2 (17:22→17:23)
[2021-11-15] MEDS ORDERED: BENZOCAINE/MENTHOL LOZENG 1 EACH LOZENGE MUCOUS MEM PRN (17:22)
[2021-11-15] MEDS ORDERED: diazePAM 5 MG TAB PO PRN (17:22)
[2021-11-15] MEDS ORDERED: HYDROmorphone 0.5 MG/0.5 ML SYRINGE IVP PRN (17:22)
[2021-11-15] MEDS ORDERED: ONDANSETRON 4 MG/2 ML VIAL IVP PRN (17:23)
[2021-11-15] MEDS ORDERED: traMADol 50 MG TAB PO PRN (17:25)
--- NOTE | 2021-11-15 17:32 | P.OP ---
Date of Procedure: 11/15/21 Preoperative Diagnosis: Spinal stenosis L3 4 L4 5, degenerative disc disease, lower extremity radiculopathy, facet arthrosis, low back pain, neurogenic claudication Postoperative Diagnosis: Same Anesthesia: GETA Pathology: none sent Condition: stable Disposition: PACU Description of Procedure: DESCRIPTION OF PROCEDURE(S): BRIEF OPERATIVE NOTE Preoperative Diagnosis: Spinal stenosis L3 4 L4 5, degenerative disc disease, lower extremity radiculopathy, facet arthrosis, low back pain, neurogenic claudication Postoperative Diagnosis: Same Procedure: Laminectomy and decompression L3 [address] navigation aided Minimally invasive Posterior lateral decompression and facet fusion L3 4 L4 5 Minimally invasive Transforaminal lumbar interbody fusion for a 360 fusion L3 4 L4 5 Discectomy for decompression L3 4 L4 5 Placement of interbody graft L3 4 L4 5 Use of computer navigation for fusion L3 4 and 5 Local autogenous bone grafting Aspiration of bone marrow from the vertebral body pedicle L3 on the right Use of bone graft extenders Increased level of difficulty given the patient's morbid obesity and body habitus with BMI greater than 47 Surgeon: Dr. Paulino Storage Receipt Poster: Seth GARCIA who is present throughout the entire the case persistence during positioning, dissection, exposure, visualization, and all crucial elements of the case as well as closure. Anesthesia: General anesthesia per Estimated blood loss: Approximately 950 mL Complications: None apparent Components implanted: K2M minimally invasive Barto pedicle screw system withscrews measuring 6.5 mm in diameter to rods one [place] interbody cage with 10 mL of osteo amp bio4 bone graft substitute and 30 mL of the BX bone fibers to supplement the local autogenous bone graft and bone marrow aspirate Disposition: To recovery room in good stable condition. OPERATIVE INDICATIONS The patient has had severe issues at their lower extremity in her lower back over the past several years with significant worsening over the past several months. Over the past few months the patient had pain at their back and their lower extremities. The patient is having severe radicular symptoms at their lower extremity with weakness. The patient is having significant pain in their back. They are unable to obtain any comfort. We did aggressive conservative treatment with medications therapy and interventional pain management however thery were not having any relief. The patient has been through conservative treatment but has not had any see him progress despite this. We discussed various treatment options including surgery, and the patient wishes to proceed with surgery We discussed the risk, patient's alternatives and benefits of surgery including but not limited to, risk of bleeding risk of infection, risk of need for further surgery, risk of decreased, loss of motion, muscle function, malunion nonunion, hardware failure, nerve damage, paralysis, heart attack, blindness and . They understood issues with the current pandemic and the possibility of exposure. The patient also has history of diabetes, hypertension and morbid obesity. These were adding to his issues in terms of his overall health and also contributed to his need to be inpatient post operatively. OPERATIVE SUMMARY After discussing all the risks, patient alternatives and benefits at length, the patient elected to proceed with surgical intervention, signed informed consent, and presented for their procedure. The patient was seen and examined in the preoperative holding area and the surgical site was marked. The patient was given antibiotics and brought to the operating room. The patient was sedated and intubated by anesthesia in standard fashion. The patient was positioned on to the operating room table in a prone position on the appropriate frame which was well-padded and well molded. We were careful to pad any bony prominences and pressure points. We were careful to maintain the patient's cervical spine and good neutral alignment and position throughout. The patient was prepped and draped in a normal standard fashion. An appropriate timeout and keystone protocol performed. We were able to proceed with the chun reinier. The local wound area was infiltrated with local anesthetic. Each aspect including positioning dissection exposure visualization decompression and placement of hardware was made more difficult given the patient's body habitus. it Increase the time and difficulty of the case. it also increase the patient's blood loss overall. Over the right iliac crest I was able to make small stab incisions and establish a guidepin screw fixation to the iliac crest 2. I was able place the computer referencing device over the guidepins to establish an appropriate reference point for the Ziem CT myesha gation. We then were able to place patient in an appropriate drape and do a navigation spin for visualization and 3-D reconstruction of the lumbar spine. I was able utilize C-arm guidance and navigation to establish appropriate position over the pedicles bilaterally at the appropriate levels . With the appropriate levels confirmed at L3 4 and L4 5 was able to make small incisions over the appropriate pedicle sites bilaterally. Utilizing the computer navigation device I was able to establish bony landmarks at the right iliac crest for a bony reference point for the navigation device. I was able to establish a Jamshidi needle over the lateral aspect of the pedicle and advanced the trocar into the pedicle being careful not to breech superiorly inferiorly medially or laterally using computer navigation device. Position was confirmed regularly with AP and lateral images on C-arm and with the computer navigation device at the appropriate levels bilaterally at L3 4 5. I was able to establish the trocar into the pedicle appropriately into the posterior aspect of the vertebral body bilaterally at the appropriate levels. This was done at each of the pedicle positions and each of the vertebrae. At the superior vertebrae I was able to take approximately 25 mL of bone aspiration for use later in the case to supplement the allograft and autograft bone. I was able place the guidewire into the trocar and into the vertebral body appropriately under C-arm guidance. Dissection was taken down over the wire to the appropriate starting position for the screw placed. The appropriate length screw was chosen, threaded over the guidewire and screwed appropriately into the pedicle and vertebral body under C- arm guidance in excellent alignment and position with good bony purchase. This is done at each of the screw sites at the appropriate levels at L3 4 and 5.. With the screws intact I extended the incision to connect the screw hole sites on the most symptomatic side on the right. I dissected down to establish access over the pars and lamina to the base of the spinous process. I was able to expose the facet joint. The capsule the facet was taken down and showed some facet arthrosis at the joint. There is evidence of severe stenosis centrally and at the neural foramen as well. I was able to use a combination of curettes and Kerrison rongeurs and a high-speed drill to take down the facet joint and do a facetectomy. I was able get excellent foraminal decompression and central decompression with undermining across midline to perform a laminectomy centrally and contralaterally. As able get good central decompression. The ligamentum flavum was taken down to further decompress centrally and at bilateral neural foramen. I was able to expose the disc space and visualize the traversing nerve root. Note was made of some disc protrusion and disc herniation that was abutting the traversing nerve root at the level causing further compression of the nerve root. I was able to establish a annulotomy at the appropriate level protecting soft tissue and neural structures. Note was made of some disc desiccation at the disc. I performed a complete discectomy with accommodation of curettes and rasps and scrapers. I was able get good endplate preparation at the disc space. I sized for the appropriate size interbody spacer protecting the soft tissue and neural structures. The wound was copiously irrigated and suctioned dry. There is no evidence of any dural tear or leak. I was able to pack the disc space with local autogenous bone graft as well as a small amount of bone graft which was also placed into the interbody cage itself. Protecting the soft tissue structures and neural structures I was able place the interbody cage in good alignment and good position with good fit and fill at the interbody space first at L45 and then at L3 4 in similar fashion. Position was confirmed with C-arm guidance. Good hemostasis maintained. There is no evidence of any dural tear or leak. The wound was irrigated and suctioned dry. With the hardware intact, intraoperative C-arm imaging was again taken which showed good alignment and position of the hardware at the appropriate levels at L3 4 and 5. We were then able to measure, contour and place the rods and appropriate hardware bilaterally. I was able to place capcrews, tighten them down, and torque them with the torque screwdriver appropriately. With this intact I was able to place the local autogenous bone graft with additional bone graft enhancer as necessary into the posterior lateral gutters over the decorticated transverse processes and facet joints on the contralateral side on the left. The remainder of the bone graft was placed over the facet joint on the contralateral side after taking down the facet joint capsule. With the bone graft intact, a stable construct, and good decompression at the appropriate levels, we were able to proceed with closure. Good hemostasis was maintained. There is no evidence of dural tear or leak. The fascia was closed for a watertight closure. he subcuticular tissue was closed with absorbable suture. The wound was cleaned and dried and dressed with the appropriate dressing. The drapes were broken down. The patient was gently rolled back onto their hospital bed being careful to maintain their cervical spine and good neutral alignment and position. They were woken up by anesthesia, extubated, and brought to the recovery room in good stable condition. The patient will be admitted to the hospital for appropriate postoperative care, medical management and monitoring. We will continue to follow them closely about the postoperative course.
[2021-11-15 18:04] LABS: Glucose,Whole Blood 225 mg/dL (70-110)
[2021-11-15] MEDS ORDERED: INSULIN ASPART (NovoLOG) 100 UNIT/ML VIAL SQ ONE (18:17)
[2021-11-15 19:22] LABS: Glucose,Whole Blood 190 mg/dL (70-110)
[2021-11-15] MEDS: SODIUM CHLORIDE 0.9% 1,000 ML IV SCH (19:41)
[2021-11-15] MEDS: ATORVASTATIN 80 MG TAB PO SCH (20:47)
[2021-11-15] MEDS: VERAPAMIL SR 240 MG TABLET.ER PO SCH (20:47)
[2021-11-15] MEDS: hydrALAZINE HCL 50 MG TAB PO SCH (20:47)
[2021-11-15] MEDS: atenoloL 50 MG TAB PO SCH (20:47)
[2021-11-15] MEDS: lisinopriL 20 MG TAB PO SCH (20:47)
[2021-11-15] MEDS: GABAPENTIN 300 MG CAP PO SCH (20:48)
[2021-11-15] MEDS: ceFAZolin 3 GM in SODIUM CHLORIDE 0.9% 100 ML IVPB SCH (20:48)
[2021-11-15] MEDS: HYDROcodone/APAP 5-325MG 1 EACH TAB PO PRN (20:50)
[2021-11-15] MEDS: CYCLOBENZAPRINE 10 MG TAB PO PRN (22:38)
--- NOTE | 2021-11-15 23:09 | FL ---
Intraoperative fluoroscopic services were provided for internal fixation of a lumbar spine. Total flu oroscopy time is 21 seconds with a total of 6 submitted images to PACS. Please see the operative note for further details.
[2021-11-16] MEDS: HYDROmorphone 1 MG/ML 1 ML SYRINGE IVP PRN ×3 (01:04→09:24)
[2021-11-16] MEDS: ceFAZolin 3 GM in SODIUM CHLORIDE 0.9% 100 ML IVPB SCH (05:21)
[2021-11-16 07:09] LABS: Glucose,Whole Blood 136 mg/dL (70-110)
[2021-11-16] MEDS: SENNOSIDES-DOCUSATE SODIUM 1 EACH TAB PO SCH (07:56)
[2021-11-16] MEDS: hydrALAZINE HCL 50 MG TAB PO SCH ×3 (07:56→21:36)
[2021-11-16] MEDS: HYDROcodone/APAP 5-325MG 1 EACH TAB PO PRN ×3 (07:56→20:25)
[2021-11-16] MEDS: MULTIVITAMINS, THERA 1 EACH TAB PO SCH (07:56)
[2021-11-16] MEDS: VERAPAMIL SR 240 MG TABLET.ER PO SCH ×2 (07:57→20:25)
[2021-11-16] MEDS: GABAPENTIN 300 MG CAP PO SCH ×2 (07:57→20:25)
[2021-11-16] MEDS: ASCORBIC ACID 500 MG TAB PO SCH (07:57)
[2021-11-16] MEDS: ASPIRIN 81 MG PO SCH (07:57)
[2021-11-16] MEDS: BUMETANIDE 0.5 MG TABLET PO SCH (08:17)
[2021-11-16] MEDS: lisinopriL 20 MG TAB PO SCH ×2 (08:17→20:25)
--- NOTE | 2021-11-16 08:27 | P.PN ---
Progress Note - Text Progress Note Date: 11/16/21 Orthopedic Spine History of present illness: Patient is a pleasant 66-year-old male who is seen and examined at the bedside following posterior lateral decompression and fusion performed yesterday. Patient states they are doing well post operatively. Currently does not complain of nausea, vomiting, fever, or chills. Patient states pain has been adequately controlled. He has some lumbar pain at the surgical sites. He is not currently complaining of any lower extremity leg pain. He is currently sitting in a bedside chair. He is able to eat breakfast without difficulty this morning. His Thomason catheter remains intact. 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 He states he has a walker at home as well. Consultation has been placed for Dr. Alarcon a medicine for medical management for his other medical diagnoses including hypertension and diabetes. Physical Exam Lumbar Fusion: Status post surgical day number 1 Patient is awake, alert, and oriented 3 Patient currently sitting comfortably in a bedside chair Vital signs stable Good chest excursion with deep inspiration and expiration Dorsiflexion, plantarflexion, and extensor hallucis longus positive sustained bilaterally No signs or symptoms of DVT; no calf pain; pneumatic cuffs not currently intact bilateral lower extremities Optifoam dressings are dry and intact over the lumbar spine and right iliac crest with one small spot of dried blood over the left lumbar incision site; no erythema, purulence, or signs of infection Neurovascularly intact bilaterally lower extremities Thomason catheter intact Assessment: Status post L3-4 and L4-5 minimally invasive posterior lateral decompression and fusion with transforaminal lumbar interbody fusion Low back pain L3-4 and L4-5 spinal stenosis Lumbar degenerative disc disease Lumbar facet arthrosis Neurogenic claudication Lower extremity radiculopathy Hypertension Diabetes Obesity Plan: 1. Ambulate as tolerated; work with Physical Therapy to increase mobilization 2. Continue pain control with IV and oral medications; will plan to begin weaning the patient off of IV narcotic medication in anticipation for discharge home in the next 1-2 days 3. Dressings to remain intact with Optifoam; patient may shower with dressings intact 4. Medical management can continue to manage patient for patient's other medical diagnoses including diabetes and hypertension 5. We will continue to follow the patient closely; depending on the patient's progress, we may plan for discharge home over the next 1-2 days 6. Patient can follow-up with Seth Irving PA-C or Dr. Storm Paulino at [facility] in 2-3 weeks following discharge
[2021-11-16] MEDS: SODIUM CHLORIDE 0.9% 1,000 ML IV SCH ×2 (09:18→20:26)
[2021-11-16] MEDS: CYCLOBENZAPRINE 10 MG TAB PO PRN ×2 (09:23→17:22)
[2021-11-16 10:37] LABS: Basophils # (A) 0.03 X 10*3/uL (0.00-0.10); Basophils % (A) 0.2 %; Eosinophils # (A) 0.02 X 10*3/uL (0.04-0.35); Eosinophils % (A) 0.1 %; HCT 39.2 % (39.6-50.0); HGB 12.5 g/dL (13.0-17.0); Immature Grans, Automated 0.4 %; Lymphocytes # (A) 0.98 X 10*3/uL (0.90-5.00); Lymphocytes % (A) 6.3 %; MCH 29.8 pg (27.0-32.0); MCHC 31.9 g/dL (32.0-37.0); MCV 93.3 fL (80.0-97.0); Mean Platelet Volume 11.2 fL (9.5-12.2); Monocytes # (A) 1.38 X 10*3/uL (0.20-1.00); Monocytes % (A) 8.9 %; NRBC Per 100 WBC 0 /100 WBCS (0.0-0.0); Neutrophils # (A) 13.08 X 10*3/uL (1.80-7.70); Neutrophils % (A) 84.1 %; Platelet Count 155 X 10*3/uL (140-440); WBC 15.56 X 10*3/uL (4.50-10.00)
[2021-11-16] MEDS: LACTATED RINGERS 1,000 ML IV SCH (10:59)
[2021-11-16 11:01] LABS: African American GFR (CKD) 68.7 (60.0-200.0); Anion Gap 11.1 mmol/L (10.00-18.00); BUN/Creat Ratio 16.3 Ratio (12.00-20.00); Blood Urea Nitrogen 20.7 mg/dL (9.0-27.0); Calcium 8.5 mg/dL (8.7-10.3); Non-African American GFR(CKD) 59.3 (60.0-200.0); Potassium 4.4 mmol/L (3.5-5.5)
[2021-11-16 11:09] LABS: Glucose,Whole Blood 157 mg/dL (70-110)
--- NOTE | 2021-11-16 14:59 | P.CONS ---
History of Present Illness - Reason for Consult Consult date: 11/16/21 medical management - Chief Complaint back pain - History of Present Illness 66-year-old male with history of hypertension and diabetes presented to the hospital following spinal decompression and fusion performed yesterday. Patient states they are doing well post operatively. Denied chest pain, shortness of breath, nausea, vomiting, fever, or chills. Back pain is currently controlled. Medicine consulted for management of his hypertension and diabetes. Review of Systems Complete review of system performed, pertinent positives per HPI, otherwise negative Past Medical History Past Medical History: Chest Pain / Angina, Diabetes Mellitus, Hyperlipidemia, Hypertension, Osteoarthritis (OA) Additional Past Medical History / Comment(s): Sigmoid diverticulosis, Vitamin D Deficency, Diet Controlled Diabetes. History of Any Multi-Drug Resistant Organisms: None Reported Additional Past Surgical History / Comment(s): Colonoscopy with biopsy and polpectomy, PAIN PROCEDURE AT OA. Past Anesthesia/Blood Transfusion Reactions: No Reported Reaction Past Psychological History: No Psychological Hx Reported Smoking Status: Never smoker Past Alcohol Use History: None Reported Past Drug Use History: None Reported - Past Family History Father Family Medical History: Hypertension, Myocardial Infarction ([place]) Additional Family Medical History / Comment(s): AGE 51 [place]. Mother Family Medical History: Cancer Additional Family Medical History / Comment(s): LUNG CANCER. Medications and Allergies Home Medications Medication Instructions Recorded Confirmed Type Aspirin 81 mg PO DAILY 09/02/14 11/10/21 History Atorvastatin Calcium [Lipitor] 80 mg PO HS 09/02/14 11/10/21 History Multivitamin [Men's Multi-Vitamin] 1 tab PO DAILY 09/02/14 11/10/21 History atenoloL [Tenormin] 100 mg PO HS 09/02/14 11/10/21 History lisinopriL 40 mg PO BID 09/02/14 11/10/21 History Ascorbic Acid [Vitamin C] 500 mg PO DAILY 12/17/19 11/10/21 History Verapamil HCl [Verapamil ER] 240 mg PO BID 12/17/19 11/10/21 History hydrALAZINE HCL [Apresoline] 50 mg PO TID 12/17/19 11/10/21 History traMADol HCL 50 mg PO BID PRN 12/17/19 11/10/21 History traZODone HCL 100 mg PO HS 12/17/19 11/10/21 History Celecoxib [CeleBREX] 200 mg PO BID 05/19/21 11/10/21 History Gabapentin [Neurontin] 300 mg PO BID 30 Days #60 cap 07/07/21 11/10/21 Rx Bumetanide [BUMEX] 0.5 mg PO DAILY 11/10/21 11/10/21 History Allergies Allergy/AdvReac Type Severity Reaction Status Date / Time bee venom protein (honey bee) Allergy Swelling Verified 11/10/21 09:45 Penicillins Allergy Rash/Hives Verified 11/10/21 09:45 Physical Exam Vitals: Vital Signs Temp Pulse Resp BP Pulse Ox 11/16/21 12:19 99.5 F 72 20 128/79 93 L 11/16/21 04:38 98.9 F 69 18 151/75 90 L 11/15/21 20:13 62 18 11/15/21 20:06 98.6 F 62 18 147/81 98 11/15/21 18:00 62 16 138/74 92 L 11/15/21 17:45 63 16 137/66 93 L 11/15/21 17:42 64 16 139/75 92 L 11/15/21 17:27 89 18 159/76 98 Intake and Output 11/15/21 11/16/21 11/16/21 22:59 06:59 14:59 Intake Total 700 240 Output Total 1200 660 Balance -500 -420 Intake: IV 700 Oral 240 Output: Urine 250 660 Estimated Blood Loss 950 Other: Voiding Method Indwelling Catheter Indwelling Catheter Constitutional: No acute distress, conversant, pleasant Eyes:Anicteric sclerae, moist conjunctiva, no lid-lag, PERRLA, ENMT: Oropharynx clear, no erythema, exudates Neck: Supple, FROM, no masses, or JVD, No carotid bruits, No thyromegaly Lungs: Clear to auscultation, Clear to percussion, Normal respiratory effort, no accessory muscle use Cardiovascular: Heart regular in rate and rhythm, No murmurs, gallops, or rubs, No peripheral edema Abdominal: Soft, Nontender, no guarding, rebound or rigidity, Normoactive bowel sounds, No hepatomegaly, No splenomegaly, No palpable mass Skin: Normal temperature, tone, texture, turgor, no induration, No subcutaneous nodules, No rash, lesions, No ulcers Extremities: No digital cyanosis, No clubbing, Pedal pulses intact and symmetrical, Radial pulses intact and symmetrical, No calf tenderness Psychiatric: Alert and oriented to person, place and time, appropriate affect, intact judgement Neuro: Muscles Strength 5/5 in all 4 extremities, Sensation to light touch grossly present throughout, Cranial nerves II-XII grossly intact, no focal sensory deficits Results CBC & Chem 7: 11/16/21 06:11 11/16/21 06:11 Labs: Abnormal Lab Results - Last 24 Hours (Table) 11/15/21 11/15/21 11/16/21 Range/Units 17:54 19:20 06:11 WBC 15.56 H (4.50-10.00) X 10*3/uL RBC 4.20 L (4.40-5.60) X 10*6/uL Hgb 12.5 L (13.0-17.0) g/dL Hct 39.2 L (39.6-50.0) % MCHC 31.9 L (32.0-37.0) g/dL Immature Gran # 0.07 H (0.00-0.04) X 10*3/uL Neutrophils # 13.08 H (1.80-7.70) X 10*3/uL Monocytes # 1.38 H (0.20-1.00) X 10*3/uL Eosinophils # 0.02 L (0.04-0.35) X 10*3/uL Est GFR (CKD-EPI)NonAf (60.0-200.0) Glucose (70-110) mg/dL POC Glucose (mg/dL) 225 H 190 H (70-110) mg/dL Calcium (8.7-10.3) mg/dL 11/16/21 11/16/21 11/16/21 Range/Units 06:11 07:07 11:07 WBC (4.50-10.00) X 10*3/uL RBC (4.40-5.60) X 10*6/uL Hgb (13.0-17.0) g/dL Hct (39.6-50.0) % MCHC (32.0-37.0) g/dL Immature Gran # (0.00-0.04) X 10*3/uL Neutrophils # (1.80-7.70) X 10*3/uL Monocytes # (0.20-1.00) X 10*3/uL Eosinophils # (0.04-0.35) X 10*3/uL Est GFR (CKD-EPI)NonAf 59.3 L (60.0-200.0) Glucose 141 H (70-110) mg/dL POC Glucose (mg/dL) 136 H 157 H (70-110) mg/dL Calcium 8.5 L (8.7-10.3) mg/dL Assessment and Plan Plan: Low-back pain status post decompression and fusion Management per surgery Pain control per surgery DVT prophylaxis per surgery Diabetes type 2 Diet controlled, check A1c Sliding scale insulin with blood sugar checks every before meals and at bedtime Hypertension Hyperlipidemia Stable Resume meds Thank you for the consultation please don't hesitate to call us in case you have any questions.
[2021-11-16 17:11] LABS: Glucose,Whole Blood 203 mg/dL (70-110)
[2021-11-16] MEDS: INSULIN ASPART (NovoLOG) 100 UNIT/ML VIAL SQ SCH ×2 (17:19→20:26)
[2021-11-16 20:01] LABS: Glucose,Whole Blood 170 mg/dL (70-110)
[2021-11-16] MEDS: atenoloL 50 MG TAB PO SCH (20:25)
[2021-11-16] MEDS: ATORVASTATIN 80 MG TAB PO SCH (20:25)
[2021-11-16] MEDS ORDERED: traZODone HCL 100 MG TAB PO SCH (21:00)
[2021-11-17 07:03] LABS: Glucose,Whole Blood 198 mg/dL (70-110)
[2021-11-17] MEDS: ASPIRIN 81 MG PO SCH (07:52)
[2021-11-17] MEDS: HYDROcodone/APAP 5-325MG 1 EACH TAB PO PRN ×2 (07:52→13:48)
[2021-11-17] MEDS: lisinopriL 20 MG TAB PO SCH (07:53)
[2021-11-17] MEDS: GABAPENTIN 300 MG CAP PO SCH (07:53)
[2021-11-17] MEDS: MULTIVITAMINS, THERA 1 EACH TAB PO SCH (07:53)
[2021-11-17] MEDS: ASCORBIC ACID 500 MG TAB PO SCH (07:53)
[2021-11-17] MEDS: SENNOSIDES-DOCUSATE SODIUM 1 EACH TAB PO SCH (07:53)
[2021-11-17] MEDS: INSULIN ASPART (NovoLOG) 100 UNIT/ML VIAL SQ SCH ×2 (07:53→12:12)
[2021-11-17] MEDS: hydrALAZINE HCL 50 MG TAB PO SCH (07:53)
[2021-11-17] MEDS: BUMETANIDE 0.5 MG TABLET PO SCH (07:53)
[2021-11-17] MEDS: VERAPAMIL SR 240 MG TABLET.ER PO SCH (07:54)
[2021-11-17] MEDS: LACTATED RINGERS 1,000 ML IV SCH (07:58)
[2021-11-17] MEDS: SODIUM CHLORIDE 0.9% 1,000 ML IV SCH (10:45)
[2021-11-17 11:20] VITALS: BP 156/83; PULSE 65; RESP 18; TEMP 98
[2021-11-17 11:53] LABS: Glucose,Whole Blood 223 mg/dL (70-110)
--- NOTE | 2021-11-17 12:56 | P.DS ---
Providers Date of admission: 11/16/21 09:59 Expected date of discharge: 11/17/21 Attending physician: Kory Paulino Consults: 11/15/21 17:23 Consult Physician Routine Consulting Provider: Ghulam Agarwal Consult Reason/Comments: Medical management Do you want consulting provider notified?: Yes Primary care physician: Marcelo Maharaj - Discharge Diagnosis(es) (1) Status post lumbar spinal fusion Current Visit: Yes Status: Acute (2) Lumbar stenosis with neurogenic claudication Current Visit: Yes Status: Acute (3) Lumbar facet arthropathy Current Visit: Yes Status: Acute (4) Lumbar degenerative disc disease Current Visit: Yes Status: Acute (5) Radiculopathy with lower extremity symptoms Current Visit: Yes Status: Acute (6) Obesity Current Visit: Yes Status: Acute (7) Diabetes mellitus Current Visit: Yes Status: Acute (8) Hypertension Current Visit: Yes Status: Acute (9) Low back pain Current Visit: Yes Status: Acute (10) Lumbar back pain with radiculopathy affecting right lower extremity Current Visit: Yes Status: Acute Hospital Course: This is a pleasant 66-year-old male who presented with L3-4 and L4-5 spinal stenosis, lumbar degenerative disc disease, lumbar facet arthrosis, neurogenic claudication, low back pain, and lower extremity radiculopathy who failed outpatient conservative therapy. He was admitted for an L3-4 and L4-5 minimally invasive posterior lateral decompression and fusion with transforaminal lumbar interbody fusion. The patient tolerated the procedure well and did well postoperatively. He has able to ambulate the hallways. His Thomason catheter was discontinued. He has been voiding without difficulty. He has had a bowel mo vement. He has been able to discontinue IV pain medication. He is happy with his progress postoperatively. He feels he is ready for discharge today. Condition on day of discharge stable. Patient will be discharged home. Patient was cleared preoperatively for surgery by Dr. Maharaj. Patient currently denies any nausea, vomiting, fever, or chills. Patient is eating and voiding freely without difficulty. Patient may shower Optifoam dressing intact. Patient may remove Optifoam dressing in 2 days and shower without a dressing at that time. Patient should refrain from driving until at least after their first follow-up appointment in the office. Patient should avoid excessive bending, lifting, and twisting; no lifting greater than 10 pounds. MAPS has been reviewed today, 11/17/2021, with an Overall Overdose Risk Score of 090. An "Opiod Start Talking" Form has been signed and placed in the patient's chart. A prescription has been written for [place] 5 mg/325 mg 1 tab every 4 morelia rs as needed for pain, dispense #42. Patient is also given a prescription for cyclobenzaprine 10 mg 1 tab 3 times a day as needed for muscle spasm, dispensed #60 and Senokot-S take1 tab twice a day as needed for constipation, dispensed #60. Patient should avoid anti-inflammatory medication of the next 6 weeks postoperatively. Patient may resume other prescription prescribed home medications while avoiding previously prescribed Ultram while taking oral [place]. Patient's other medical diagnoses include hypertension, obesity, diabetes mellitus. Physical Exam on day of discharge: Patient is awake, alert, and oriented 3 Vital signs stable Good chest excursion with deep inspiration and expiration Abdomen soft nontender No signs or symptoms of DVT; no calf pain Extensor hallucis longus, plantarflexion, and dorsiflexion positive sustained bilateral lower extremities Incisions are dry and intact; no erythema, purulence, or signs of infection Optifoam dressings intact Procedures: L3-4 and L4-5 minimally invasive posterior lateral decompression and fusion with transforaminal lumbar interbody fusion Patient Condition at Discharge: Stable Plan - Discharge Summary Discharge Rx Participant: No New Discharge Prescriptions: New Cyclobenzaprine [Flexeril] 10 mg PO TID PRN #60 tab PRN Reason: Muscle Spasm HYDROcodone/APAP 5-325MG [[place] 5] 1 each PO Q4HR PRN #42 tab PRN Reason: Pain Sennosides-Docusate Sodium [Senokot-S] 1 tab PO BID PRN #60 tablet PRN Reason: Constipation No Action Aspirin 81 mg PO DAILY atenoloL [Tenormin] 100 mg PO HS lisinopriL 40 mg PO BID Atorvastatin Calcium [Lipitor] 80 mg PO HS Multivitamin [Men's Multi-Vitamin] 1 tab PO DAILY traZODone HCL 100 mg PO HS hydrALAZINE HCL [Apresoline] 50 mg PO TID Verapamil HCl [Verapamil ER] 240 mg PO BID Ascorbic Acid [Vitamin C] 500 mg PO DAILY traMADol HCL 50 mg PO BID PRN PRN Reason: Pain Celecoxib [CeleBREX] 200 mg PO BID Gabapentin [Neurontin] 300 mg PO BID 30 Days #60 cap Bumetanide [BUMEX] 0.5 mg PO DAILY Discharge Medication List Aspirin 81 mg PO DAILY 09/02/14 [History] Atorvastatin Calcium [Lipitor] 80 mg PO HS 09/02/14 [History] Multivitamin [Men's Multi-Vitamin] 1 tab PO DAILY 09/02/14 [History] atenoloL [Tenormin] 100 mg PO HS 09/02/14 [History] lisinopriL 40 mg PO BID 09/02/14 [History] Ascorbic Acid [Vitamin C] 500 mg PO DAILY 12/17/19 [History] Verapamil HCl [Verapamil ER] 240 mg PO BID 12/17/19 [History] hydrALAZINE HCL [Apresoline] 50 mg PO TID 12/17/19 [History] traMADol HCL 50 mg PO BID PRN 12/17/19 [History] traZODone HCL 100 mg PO HS 12/17/19 [History] Celecoxib [CeleBREX] 200 mg PO BID 05/19/21 [History] Gabapentin [Neurontin] 300 mg PO BID 30 Days #60 cap 07/07/21 [Rx] Bumetanide [BUMEX] 0.5 mg PO DAILY 11/10/21 [History] Cyclobenzaprine [Flexeril] 10 mg PO TID PRN #60 tab 11/17/21 [Rx] HYDROcodone/APAP 5-325MG [[place] 5] 1 each PO Q4HR PRN #42 tab 11/17/21 [Rx] Sennosides-Docusate Sodium [Senokot-S] 1 tab PO BID PRN #60 tablet 11/17/21 [Rx] Follow up Appointment(s)/Referral(s): Seth Irving, CHANTEL [PHYSICIAN SPACE PHYSICIST] - 2 Weeks (Patient may follow-up with Seth Irving PA-C or Dr. Storm Paulnio at [facility] in 2-3 weeks following discharge. ) Activity/Diet/Wound Care/Special Instructions: 1. Patient may shower with Optifoam dressing intact. 2. Patient may remove Optifoam dressing in 2 days and shower without a dressing at that time. 3. Patient should refrain from driving until at least after their first follow- up appointment in the office. 4. Patient should avoid excessive bending, twisting, lifting; avoid overhead lifting; no lifting greater than 10 pounds 5. Take medications as prescribed 6. Patient may utilize a walker to aid in ambulation as needed. 7. Patient should avoid anti-inflammatory medications over the next 6 weeks postoperatively 8. Do not soak in tub Discharge Disposition: HOME SELF-CARE
[2021-11-17] MEDS: CYCLOBENZAPRINE 10 MG TAB PO PRN (13:48)
--- NOTE | 2021-11-17 14:33 | P.PN ---
Subjective Progress Note Date: 11/17/21 Principal diagnosis: Medical management Patient was seen and examined. No acute events overnight. Patient reports well-controlled pain in his lower back. Able to ambulate without difficulties. Requesting to be discharged home. Objective - Vital Signs Vital signs: Vital Signs Temp 98 F 11/17/21 11:19 Pulse 65 11/17/21 11:19 Resp 18 11/17/21 11:19 BP 156/83 11/17/21 11:19 Pulse Ox 95 11/17/21 11:19 FiO2 Intake & Output 11/16/21 11/17/21 11/17/21 18:59 06:59 18:59 Intake Total 900 360 296 Output Total 400 900 Balance 900 40 604 Intake: Intake, IV Titration 900 Amount Sodium Chloride 0.9% 1, 900 000 ml @ 75 mls/hr IV . [id number] [facility] Rx#:[id number] Oral 360 296 Output: Urine 400 900 Other: Voiding Method Indwelling Catheter Toilet Toilet - Exam General: [non toxic], [no distress], [appears at stated age] Derm: [warm], [dry] Head: [atraumatic], [normocephalic], [symmetric] Eyes: [EOMI], [no lid lag], [anicteric sclera] Mouth: [no lip lesion], [mucus membranes moist] Cardiovascular: [S1S2 reg], [no murmur] Lungs: [CTA bilateral], [no rhonchi, no rales] , [no accessory muscle use] Ext: [no gross muscle atrophy], [no edema], [no contractures] Neuro: [no focal neuro deficits] Psych: [Alert], [oriented], [appropriate affect] - Labs CBC & Chem 7: 11/16/21 06:11 11/16/21 06:11 Labs: Abnormal Lab Results - Last 24 Hours (Table) 11/16/21 11/16/21 11/16/21 Range/Units 06:11 17:09 19:59 POC Glucose (mg/dL) 203 H 170 H (70-110) mg/dL Hemoglobin A1c 6.4 H (0.0-6.0) % 11/17/21 11/17/21 Range/Units 07:02 11:52 POC Glucose (mg/dL) 198 H 223 H (70-110) mg/dL Hemoglobin A1c (0.0-6.0) % Assessment and Plan Assessment: Low-back pain status post decompression and fusion Management per surgery Pain control per surgery DVT prophylaxis per surgery Diabetes type 2 Diet controlled, A1c 6.4 Sliding scale insulin with blood sugar checks every before meals and at bedtime Hypertension Hyperlipidemia Stable Resume meds Thank you for the consultation please don't hesitate to call us in case you have any questions. Patient medically cleared for discharge.
== END 2021-11-17 14:05 | disposition home or self-care (01) | DRG 454 ==
LOC: OR 11:03 → 5NMEDONC 17:29 → OR 11-16 05:58 → 5NMEDONC 11-16 05:58 → OBSVTOIN 11-16 09:59
PROVIDERS: ADMIT Orthopaedic Surgery Orthopaedic Surgery of the Spine; ATTEND Orthopaedic Surgery Orthopaedic Surgery of the Spine
PROC: 0SG10AJ Fusion of 2 or more Lumbar Vertebral Joints with Interbody Fusion Device, Posterior Approach, Anterior Column, Open Approach (ICD-10-PCS; principal; 2021-11-15 12:30)
PROC: 4A11X4G Monitoring of Peripheral Nervous Electrical Activity, Intraoperative, External Approach (ICD-10-PCS; principal; 2021-11-15 12:30)
PROC: 0ST20ZZ Resection of Lumbar Vertebral Disc, Open Approach (ICD-10-PCS; principal; 2021-11-15 12:30)
PROC: 01NB0ZZ Release Lumbar Nerve, Open Approach (ICD-10-PCS; principal; 2021-11-15 12:30)
PROC: 0SG1071 Fusion of 2 or more Lumbar Vertebral Joints with Autologous Tissue Substitute, Posterior Approach, Posterior Column, Open Approach (ICD-10-PCS; principal; 2021-11-15 12:30)
DX: M48.062 Spinal stenosis, lumbar region with neurogenic claudication (principal); Z68.42 Body mass index [BMI] 45.0-49.9, adult; E11.9 Type 2 diabetes mellitus without complications; E66.01 Morbid (severe) obesity due to excess calories; M51.16 Intervertebral disc disorders with radiculopathy, lumbar region; M47.26 Other spondylosis with radiculopathy, lumbar region; I10 Essential (primary) hypertension; E78.2 Mixed hyperlipidemia; E55.9 Vitamin D deficiency, unspecified; K57.30 Diverticulosis of large intestine without perforation or abscess without bleeding; K21.9 Gastro-esophageal reflux disease without esophagitis; F32.9 Major depressive disorder, single episode, unspecified; G47.33 Obstructive sleep apnea (adult) (pediatric); E29.1 Testicular hypofunction; M19.90 Unspecified osteoarthritis, unspecified site; Z79.82 Long term (current) use of aspirin; Z79.890 Hormone replacement therapy; Z79.1 Long term (current) use of non-steroidal anti-inflammatories (NSAID); Z79.899 Other long term (current) drug therapy; Z88.0 Allergy status to penicillin; Z91.030 Bee allergy status; Z80.1 Family history of malignant neoplasm of trachea, bronchus and lung
CPT/HCPCS: 72100; 80048; 81003; 83036; 85025; 85610; 85730; 86850; 86891; 86900; 86901; 87070

== ENCOUNTER → 2022-05-20 | Outpatient (CLI) | payer BC ==
--- NOTE | 2022-05-23 08:37 | US ---
EXAMINATION TYPE: US renal artery duplex complete DATE OF EXAM: 05/20/2022 COMPARISON: NONE CLINICAL HISTORY: I10 HTN I15.8. Pt states recent spike in BP and protein in urine MEASUREMENTS: RENAL SIZE: Rt Kidney: 11.3 x 5.8 x 5.6 cm Lt Kidney: 13.0 x 6.3 x 5.1 cm RESISTANCE INDEX Right: 0.7 Left: 0.7 RA/AO RATIO (< 3.5 ) Right: 0.8 Left: 1.3 RA VELOCITY ( < 180 cm/s) Right: 88 Left: 130.6 Bilateral proximal and mid renal artery unable to be visualized due to pt's large size and overlyin g bowel gas/ Visualized portions show no evidence of renal artery stenosis IMPRESSION: Limited examination due to patient's body habitus and overlying bowel gas with the bilateral proximal main renal arteries not visualized. Visualized portions demonstrate no evidence of renal artery stenosis.
== END | disposition home or self-care (01) ==
LOC: RADUSWWP 06:41
PROVIDERS: ATTEND Family Medicine
DX: Z53.9 Procedure and treatment not carried out, unspecified reason (principal)
CPT/HCPCS: 93975

== ENCOUNTER → 2022-11-30 | Outpatient (CLI) | payer MEDICARE, BC ==
--- NOTE | 2022-12-02 14:03 | CT ---
EXAMINATION TYPE: CT facial bones wo con CT DLP: 803.2 mGycm, Automated exposure control for dose reduction was used. DATE OF EXAM: 11/30/2022 6:33 PM COMPARISON: CTA head neck 03/27/2020. CLINICAL INDICATION:Male, 67 years old with history of J01.01 J01.11 R05.1; PHH, sinusitis TECHNIQUE: Multiple unenhanced axial CT images were obtained of the facial bones soft tissue and bone windows. Coronal, axial and sagittal reformatted images were also provided in soft tissue and bone windows and submitted for interpretation. FINDINGS: Dental amalgam is demonstrated which creates streak artifact limiting evaluation. There is no evidence of fracture, subluxation, dislocation, or significant soft tissue swelling. The orbital contents are unremarkable. The temporal-mandibular joints appear symmetric. The visualized po rtion of the paranasal sinuses appear clear. The ostiomeatal complexes are clear. Minimal opacificati on inferior bilateral mastoid air cells. Nasal septal deviation to the right. Mild atelectatic calcif ication of the bilateral internal carotid arteries with bilateral medial deviation. Degenerative disc disease of the visualized upper cervical spine. IMPRESSION: 1. No acute facial bone fracture. 2. No paranasal sinus disease identified.
== END | disposition home or self-care (01) ==
LOC: RADCTMAIN 17:55
PROVIDERS: ATTEND Family Medicine
DX: J01.01 Acute recurrent maxillary sinusitis (principal); J01.11 Acute recurrent frontal sinusitis; R05.1 Acute cough
CPT/HCPCS: 70486

== ENCOUNTER → 2022-12-21 | Outpatient (CLI) | payer MEDICARE, BC ==
--- NOTE | 2022-12-21 13:10 | CT ---
EXAMINATION TYPE: CT chest wo con DATE OF EXAM: 12/21/2022 COMPARISON: 12/17/2019 HISTORY: Shortness of breath CT DLP: 900 mGycm. Automated Exposure Control for Dose Reduction was Utilized. TECHNIQUE: CT scan of the thorax is performed without IV contrast. FINDINGS: LUNGS: There are multifocal areas of consolidation bilaterally greatest within the right upper lobe c ompatible with pneumonia. No pleural effusion or pneumothorax. No interstitial edema. Subpleural micr onodule in the left upper lobe. Additional subpleural less than 5 mm nodules seen bilaterally small t o characterize. Within the right lower lobe there is a 5 mm nodule. Punctate pleural subpleural nodul e seen at the left lung base appear to be calcified.. There is no pleural effusion or pneumothorax seen. The tracheobronchial tree is patent. MEDIASTINUM: Lack of IV contrast is noted to limit evaluation for mediastinal and especially hilar ad enopathy. There are no definitive greater than 1 cm hilar or mediastinal lymph nodes. No cardiomega ly or pericardial effusion is seen. Coronary artery calcification. Atherosclerotic change of the aort a which is of normal caliber. OTHER: Hypertrophic and degenerative changes of the spine. Spleen is prominent measuring 15 cm and th ere is a small hiatal hernia.. IMPRESSION: 1. Diffuse bilateral multifocal areas of infiltrate most typical pneumonia. Include atypical pneumoni a in the differential diagnosis. Less likely etiologies could be hypersensitive pneumonitis, pulmonar y hemorrhage or vasculitis. This results were discussed with Dr. Maharaj 13:07 12/21/2022. 2. Splenomegaly.
== END | disposition home or self-care (01) ==
LOC: RADCTMAIN 12:26
PROVIDERS: ATTEND Family Medicine
DX: J18.9 Pneumonia, unspecified organism (principal); R16.1 Splenomegaly, not elsewhere classified; R91.8 Other nonspecific abnormal finding of lung field; R05.3 Chronic cough; R04.2 Hemoptysis
CPT/HCPCS: 71250

== ENCOUNTER → 2022-12-27 | Outpatient (CLI) | payer MEDICARE, BC ==
--- NOTE | 2022-12-27 10:59 | XR ---
EXAMINATION TYPE: XR chest 2V DATE OF EXAM: 12/27/2022 COMPARISON: 11/04/2021 TECHNIQUE: PA and lateral views submitted. HISTORY: Cough FINDINGS: The lungs are clear and there is no pneumothorax, pleural effusion, or focal pneumonia. Heart size normal and no overt failure. Osseous structures demonstrate hypertrophic and degenerative changes of the spine. Coarsened interstitium. Hypertrophic arthropathy of the AC joints. IMPRESSION: 1. Coarsened interstitium correlate for bronchitis or interstitial pneumonitis.
== END | disposition home or self-care (01) ==
LOC: RADXRYALE 10:33
PROVIDERS: ATTEND Family Medicine
DX: J18.1 Lobar pneumonia, unspecified organism (principal); J84.89 Other specified interstitial pulmonary diseases
CPT/HCPCS: 71046

== ENCOUNTER → 2023-01-06 | Outpatient (CLI) | payer MEDICARE, BC ==
--- NOTE | 2023-01-06 17:33 | XR ---
EXAMINATION TYPE: XR chest 2V DATE OF EXAM: 01/06/2023 4:22 PM COMPARISON: Chest radiographs from 12/27/2022, CT chest 12/21/2022 TECHNIQUE: XR chest 2V Frontal and lateral views of the chest. CLINICAL INDICATION:Male, 67 years old with history of R0602,R052 SOB,SUBACUTE COUGH; FINDINGS: Lungs/Pleura: Subtle patchy airspace opacities throughout the right lung. No pneumothorax or pleural effusion. Pulmonary vascularity: Unremarkable. Heart/mediastinum: Cardiomediastinal silhouette is unremarkable. Musculoskeletal: No acute osseous pathology. IMPRESSION: Subtle patchy airspace opacities throughout the right lung concerning for pneumonia or pneumonitis.
== END | disposition home or self-care (01) ==
LOC: RADXRYALE 16:13
PROVIDERS: ATTEND Family Medicine
DX: R91.8 Other nonspecific abnormal finding of lung field (principal); R06.02 Shortness of breath; R05.2 Subacute cough
CPT/HCPCS: 71046

== ENCOUNTER → 2023-02-03 | Day surgery (SDC) | payer MEDICARE, BC ==
[2023-02-01 09:11] VITALS: BMI 42.1
[~2023-02-03] MED LIST changes: -DEXAMETHASONE SOD PHOSPHATE 4 MG/ML 1 ML VIAL IV ONE; -HYDROmorphone 0.5 MG/0.5 ML SYRINGE IVP PRN; +KETAMINE HCL IN 0.9 % NACL 50 MG/5 ML SYRINGE ONE; +LACTATED RINGERS 1,000 ML IV SCH; +LIDOCAINE 1% (10MG/ML) FOR IV START INTRADERMA PRN; +LIDOCAINE 2% INJ 20 MG/ML (2 ML VIAL) ONE; +LIDOCAINE 2% INJ 20 MG/ML INTRATRACH ONE; -MIDAZOLAM 2 MG/2 ML VIAL IV PRN; +MIDAZOLAM 2 MG/2 ML VIAL ONE; -ONDANSETRON 4 MG/2 ML VIAL IVP ONE; +ONDANSETRON 4 MG/2 ML VIAL IVP PRN; +PROPOFOL 10 MG/ML 20 ML VIAL IV ONE; -SCOPOLAMINE 1 MG/72 HR PATCH TRANSDERM ONE; -ceFAZolin 1,000 MG in SODIUM CHLORIDE 0.9% IRRIGATIO 1,000 ML IRRIGATION PRN; -ceFAZolin 3 GM in SODIUM CHLORIDE 0.9% 100 ML IVPB PRN; +fentaNYL (PF) 50 MCG/ML 2 ML AMP ONE
[2023-02-03] MEDS: LACTATED RINGERS 1,000 ML IV SCH ×2 (07:17→07:37)
[2023-02-03 07:26] LABS: Glucose,Whole Blood 157 mg/dL (70-110)
[2023-02-03 07:36] VITALS: TEMP 98.4
[2023-02-03 08:14] VITALS: RESP 16
[2023-02-03 08:23] VITALS: BP 120/67; PULSE 69
--- NOTE | 2023-02-03 08:25 | OP ---
OPERATIVE REPORT DATE OF SERVICE : PROCEDURES PERFORMED: Bronchoscopy and bronchoalveolar lavage of the right lower lobe, right middle lobe, and right upper lobe. PREOPERATIVE DIAGNOSIS: Hemoptysis. 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 ANESTHESIA USED: The patient was given IV conscious sedation. PROCEDURE IN DETAIL: The patient was brought into the bronchoscopy suite, he was prepared according to the bronchoscopy protocol. O2 was applied via nasal cannula, and we monitored his O2 saturation continuously. Blood pressure was intermittently monitored, and cardiac rhythm was continuously monitored. O2 was applied via nasal cannula, and a bite block was applied. After adequate IV conscious sedation, the bronchoscope was advanced through the mouth into the area of the vocal cords. Examination of the vocal cords showed adequate mobility of the vocal cords, but there were definitely tiny areas of leukoplakia noted on the anterior aspect of the vocal cords, and pictures were taken of the vocal cords. Then, lidocaine was applied over the vocal cords, and the bronchoscope was advanced further down. Thorough examination was done of the trachea, right upper lobe, right middle lobe, right lower lobe, left upper lobe, lingula, and left lower lobe. There was no evidence of any endobronchial tumors; however, the mucosa was noted to be fairly inflamed and a bit swollen, no evidence of purulent secretions noted. No endobronchial tumors were noted in the areas that I was concerned about, especially the right hilar area. At any rate, bronchoscopy was basically nondiagnostic, except for inflammation of the bronchial tubes, and leukoplakia of the vocal cords. Lavage of the right lower lobe, right middle lobe, and right upper lobe was done and sent for different diagnostic studies since the patient recovered recently from right lower lobe pneumonia. Procedure was well tolerated; no complications, the patient will see me in the office for followup in 1 week, and will likely consider referral to ENT to evaluate his vocal cords. MMODL / IJN: [id number] /
== END ==
LOC: ORWHC2ENDO 06:34
PROVIDERS: ATTEND Internal Medicine
DX: J38.3 Other diseases of vocal cords (principal); I10 Essential (primary) hypertension; E78.5 Hyperlipidemia, unspecified; G47.33 Obstructive sleep apnea (adult) (pediatric); Z86.718 Personal history of other venous thrombosis and embolism; Z86.711 Personal history of pulmonary embolism; Z87.01 Personal history of pneumonia (recurrent); Z88.0 Allergy status to penicillin; Z79.82 Long term (current) use of aspirin; Z79.1 Long term (current) use of non-steroidal anti-inflammatories (NSAID); Z79.899 Other long term (current) drug therapy; Z91.030 Bee allergy status
CPT/HCPCS: 87798 ×3; 87496; 87498; 87529; 88108; 88305; 87502; 87634; 87070; 87205; 87116; 87102; 87206; 31624; J2001 ×2; J2250; J3010; J2704

== ENCOUNTER → 2023-03-09 | Outpatient (CLI) | payer MEDICARE, BC ==
--- NOTE | 2023-03-10 08:28 | XR ---
EXAMINATION TYPE: XR chest 2V DATE OF EXAM: 03/09/2023 COMPARISON: 01/06/2023 TECHNIQUE: PA and lateral views submitted. HISTORY: Cough FINDINGS: The lungs are clear and there is no pneumothorax, pleural effusion, or focal pneumonia. Heart size normal and no overt failure. Osseous structures demonstrate hypertrophic and degenerative changes of the spine. Limited inspiration. Biapical pleural thickening. Interstitial markedly improved from prio r exam. Patchy areas of infiltrate in the right lung have resolved. IMPRESSION: 1. No acute process.
== END | disposition home or self-care (01) ==
LOC: RADXRYALE 16:42
PROVIDERS: ATTEND Family Medicine
DX: R05.3 Chronic cough (principal); R06.02 Shortness of breath
CPT/HCPCS: 71046

== ENCOUNTER 2023-04-07 07:22 | Emergency (ER) | payer MEDICARE, BC ==
--- NOTE | 2023-04-07 07:58 | ED ---
Skin/Abscess/FB HPI - General Stated complaint: left leg rash Time Seen by Provider: 04/07/23 07:54 - History of Present Illness Initial comments: 67 year old male presents with rash to left lower leg. Developed this morning. He denies that it is painful or itchy. No history of similar in the past. He was placed on montelukast recently. Denies fevers. No calf pain. no history of dvt. last blood work through the primary office demonstrated low platelets. Patient denies illicit symptoms to include chest pain, shortness of breath, abdominal pain, headache. He called his primary care office who could not get him evaluated today. He reports that he recently went back to work and has been ambulating on his feet for 9 hours a day for the past several days - Related Data Home Medications Medication Instructions Recorded Confirmed Aspirin 81 mg PO DAILY 09/02/14 02/03/23 Atorvastatin Calcium [Lipitor] 80 mg PO HS 09/02/14 02/03/23 Multivitamin [Men's Multi-Vitamin] 1 tab PO DAILY 09/02/14 02/03/23 atenoloL [Tenormin] 100 mg PO HS 09/02/14 02/03/23 lisinopriL 40 mg PO BID 09/02/14 02/03/23 Ascorbic Acid [Vitamin C] 500 mg PO DAILY 12/17/19 02/03/23 Verapamil HCl [Verapamil ER] 240 mg PO BID 12/17/19 02/03/23 hydrALAZINE HCL [Apresoline] 50 mg PO TID 12/17/19 02/03/23 traMADol HCL 50 mg PO BID PRN 12/17/19 02/03/23 traZODone HCL 100 mg PO HS 12/17/19 02/03/23 Celecoxib [CeleBREX] 200 mg PO BID 05/19/21 02/03/23 Bumetanide [BUMEX] 0.5 mg PO DAILY 11/10/21 02/03/23 Previous Rx's Medication Instructions Recorded Gabapentin [Neurontin] 300 mg PO BID 30 Days #60 cap 07/07/21 Cyclobenzaprine [Flexeril] 10 mg PO TID PRN #60 tab 11/17/21 Sennosides-Docusate Sodium 1 tab PO BID PRN #60 tablet 11/17/21 [Senokot-S] Allergies Allergy/AdvReac Type Severity Reaction Status Date / Time bee venom protein (honey bee) Allergy Swelling Verified 04/07/23 07:55 lisinopril Allergy Anaphylaxis Verified 04/07/23 07:55 Penicillins Allergy Rash/Hives Verified 04/07/23 07:55 Review of Systems ROS Statement: Those systems with pertinent positive or pertinent negative responses have been documented in the HPI. ROS Other: All systems not noted in ROS Statement are negative. Past Medical History Past Medical History: Chest Pain / Angina, Diabetes Mellitus, Hyperlipidemia, Hypertension Additional Past Medical History / Comment(s): sigmoid diverticulosis,vit d deficency, diet controlled diabetes. HAD PNEUMONIA AND COUGHING UP BLOOD ABOUT 2 WEEK AGO, STILL COUGHING History of Any Multi-Drug Resistant Organisms: None Reported Past Surgical History: Back Surgery Additional Past Surgical History / Comment(s): colonoscopy w/ bx and polpectomy,. PAIN PROCEDURE AT OA. LAMINECTOMY/DECOMPRESSION L3 4, L4 5 11/10/21 Past Anesthesia/Blood Transfusion Reactions: No Reported Reaction Smoking Status: Never smoker - Past Family History Father Family Medical History: Hypertension, Myocardial Infarction ([place]) Additional Family Medical History / Comment(s): AGE 51 [place]. Mother Family Medical History: Cancer Additional Family Medical History / Comment(s): LUNG CANCER. General Exam General appearance: alert, in no apparent distress Head exam: Present: atraumatic, normocephalic, normal inspection Eye exam: Present: normal appearance, PERRL, EOMI. Absent: scleral icterus, conjunctival injection, periorbital swelling ENT exam: Present: normal exam, mucous membranes moist Neck exam: Present: normal inspection. Absent: tenderness, meningismus, lymphadenopathy Respiratory exam: Present: normal lung sounds bilaterally. Absent: respiratory distress, wheezes, rales, rhonchi, stridor Cardiovascular Exam: Present: regular rate, normal rhythm, normal heart sounds. Absent: systolic murmur, diastolic murmur, rubs, gallop, clicks GI/Abdominal exam: Present: soft, normal bowel sounds. Absent: distended, tenderness, guarding, rebound, rigid Extremities exam: Present: normal inspection, full ROM, normal capillary refill. Absent: tenderness, pedal edema, joint swelling, calf tenderness Back exam: Present: normal inspection Neurological exam: Present: alert, oriented X3, CN II-XII intact Psychiatric exam: Present: normal affect, normal mood Skin exam: Present: warm, dry, intact, normal color, rash (Petechial rash left lower ankle. No ulceration. No signs of cellulitis. No pain. Mild warmth. No calf pain.) Course Vital Signs 04/07/23 07:52 Temperature 98.4 F Pulse Rate 67 Respiratory 20 Rate Blood Pressure 150/64 O2 Sat by Pulse 99 Oximetry Medical Decision Making - Medical Decision Making Was pt. sent in by a medical professional or institution ([facility], [facility], urgent care, hospital, or usp...) When possible be specific @ -No Did you speak to anyone other than the patient for history (EMS, parent, family, police, friend...)? What history was obtained from this source @ -No Did you review nursing and triage notes (agree or disagree)? Why? @ -I reviewed and agree with nursing and triage notes Were old charts reviewed (outside hosp., previous admission, EMS record, old EKG, old radiological studies, urgent care reports/EKG's, usp records)? Report findings @ -No old charts were reviewed Differential Diagnosis (chest pain, altered mental status, abdominal pain women, abdominal pain men, vaginal bleeding, weakness, fever, dyspnea, syncope, headache, dizziness, GI bleed, back pain, seizure, CVA, palpatations, mental health, musculoskeletal)? @ -Vasculitis, cellulitis, DVT, meningitis EKG interpreted by me (3pts min.). @ -Not done X-rays interpreted by me (1pt min.). @ -None done CT interpreted by me (1pt min.). @ -None done U/S interpreted by me (1pt. min.). @ -None done What testing was considered but not performed or refused? (CT, X-rays, U/S, labs)? Why? @ -None What meds were considered but not given or refused? Why? @ -None Did you discuss the management of the patient with other professionals (professionals i.e. [facility], [facility], lab, RT, psych nurse, social media strategist, chief operations officer, t eacher, property disposal officer, special education case manager)? Give summary @ -No Was smoking cessation discussed for >3mins.? @ -No Was critical care preformed (if so, how long)? @ -No Were there social determinants of health that impacted care today? How? (Homelessness, low income, unemployed, alcoholism, drug addiction, transportation, low edu. Level, literacy, decrease access to med. care, halfway, rehab)? @ -No Was there de-escalation of care discussed even if they declined (Discuss DNR or withdrawal of care, Hospice)? DNR status @ -No What co-morbidities impacted this encounter? (DM, HTN, Smoking, COPD, CAD, Cancer, CVA, ARF, Chemo, Hep., AIDS, mental health diagnosis, sleep apnea, morbid obesity)? @ -Diabetes mellitus Was patient admitted / discharged? Hospital course, mention meds given and route, prescriptions, significant lab abnormalities, going to OR and other pertinent info. @ -Discharged. Patient seen and evaluated. Laboratory studies are completed as he reports he had recently diagnosed low platelets. Laboratory studies are within normal limits. I did discuss the diagnosis and differential. 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 I did discuss treatment options. I feel that the patient should follow up in office for further evaluation of his rash. I offered to place him on steroids however the patient has no symptoms and therefore I do not feel that the patient would get benefit from them as he is a diabetic and risks raising his blood glucose. Patient is agreeable to this. He will follow up with his doctor and have further testing and return should he develop any new or worsening symptoms. Patient discharged in stable condition Undiagnosed new problem with uncertain prognosis? @ -Yes Drug Therapy requiring intensive monitoring for toxicity (Heparin, Nitro, Insulin, Cardizem)? @ -No Were any procedures done? @ -No Diagnosis/symptom? @ -Acute rash left lower extremity, suspected vasculitis Acute, or Chronic, or Acute on Chronic? @ -Acute Uncomplicated (without systemic symptoms) or Complicated (systemic symptoms)? @ -Uncomplicated Side effects of treatment? @ -No Exacerbation, Progression, or Severe Exacerbation? @ -No Poses a threat to life or bodily function? How? (Chest pain, [place], [place], pneumonia, PE, COPD, DKA, ARF, appy, cholecystitis, CVA, Diverticulitis, Homicidal, Suicidal, threat to staff... and all critical care pts) @ -No - Lab Data Result diagrams: 04/07/23 08:09 04/07/23 08:09 Lab Results 04/07/23 04/07/23 04/07/23 Range/Units 08:09 08:09 08:09 WBC 5.5 (3.8-10.6) k/uL RBC 3.79 L (4.30-5.90) m/uL Hgb 10.8 L (13.0-17.5) gm/dL Hct 32.8 L (39.0-53.0) % MCV 86.4 (80.0-100.0) fL MCH 28.5 (25.0-35.0) pg MCHC 32.9 (31.0-37.0) g/dL RDW 16.6 H (11.5-15.5) % Plt Count 127 L (150-450) k/uL MPV 8.6 Neutrophils % 77 % Lymphocytes % 16 % Monocytes % 4 % Eosinophils % 2 % Basophils % 0 % Neutrophils # 4.3 (1.3-7.7) k/uL Lymphocytes # 0.9 L (1.0-4.8) k/uL Monocytes # 0.2 (0-1.0) k/uL Eosinophils # 0.1 (0-0.7) k/uL Basophils # 0.0 (0-0.2) k/uL Hypochromasia Slight Anisocytosis Slight PT 10.4 (10.0-12.5) sec INR 0.9 (<1.2) APTT 30.4 H (22.0-30.0) sec Sodium 141 (137-145) mmol/L Potassium 4.3 (3.5-5.1) mmol/L Chloride 106 (98-107) mmol/L Carbon Dioxide 24 (22-30) mmol/L Anion Gap 11 mmol/L BUN 26 H (9-20) mg/dL Creatinine 1.25 (0.66-1.25) mg/dL Est GFR (CKD-EPI)AfAm 70 (>60 ml/min/1.73 sqM) Est GFR (CKD-EPI)NonAf 61 (>60 ml/min/1.73 sqM) Glucose 174 H (74-99) mg/dL Calcium 9.4 (8.4-10.2) mg/dL Total Bilirubin 0.6 (0.2-1.3) mg/dL AST 41 (17-59) U/L ALT 30 (4-49) U/L Alkaline Phosphatase 119 (38-126) U/L Total Protein 7.8 (6.3-8.2) g/dL Albumin 3.9 (3.5-5.0) g/dL Disposition Clinical Impression: Vasculitis, Rash Disposition: HOME SELF-CARE Condition: Stable Instructions (If sedation given, give patient instructions): Acute Rash (ED) Additional Instructions: I believe that you have a skin condition called vasculitis. Your primary care doctor will have to do further blood work to determine the etiology. You may benefit from steroids. If you have any new or worsening symptoms to include fevers, pain or difficulties with urination, return to the emergency department Is patient prescribed a controlled substance at d/c from ED?: No Referrals: Marcelo Maharaj DO [Primary Care Provider] - 1-2 days Time of Disposition: 10:01
[2023-04-07 08:03] VITALS: BP 150/64; PULSE 67; RESP 20; TEMP 98.4
[2023-04-07 08:57] LABS: Anisocytosis Slight; Basophils % (A) 0 %; Eosinophils # (A) 0.1 k/uL (0-0.7); Eosinophils % (A) 2 %; HCT 32.8 % (39.0-53.0); HGB 10.8 gm/dL (13.0-17.5); Hypochromasia Slight; Lymphocytes # (A) 0.9 k/uL (1.0-4.8); Lymphocytes % (A) 16 %; MCH 28.5 pg (25.0-35.0); MCHC 32.9 g/dL (31.0-37.0); MCV 86.4 fL (80.0-100.0); Mean Platelet Volume 8.6; Monocytes # (A) 0.2 k/uL (0-1.0); Monocytes % (A) 4 %; Neutrophils # (A) 4.3 k/uL (1.3-7.7); Neutrophils % (A) 77 %; Platelet Count 127 k/uL (150-450); RBC 3.79 m/uL (4.30-5.90); RDW 16.6 % (11.5-15.5); WBC 5.5 k/uL (3.8-10.6)
[2023-04-07 09:07] LABS: INR 0.9 (<1.2); Partial Thromboplastin Time 30.4 sec (22.0-30.0); Prothrombin Time 10.4 sec (10.0-12.5)
[2023-04-07 09:20] LABS: ALT 30 U/L (4-49); AST 41 U/L (17-59); African American GFR (CKD) 70 (>60 ml/min/1.73 sqM); Albumin 3.9 g/dL (3.5-5.0); Alkaline Phosphatase 119 U/L (38-126); Anion Gap 11 mmol/L; Blood Urea Nitrogen 26 mg/dL (9-20); Calcium 9.4 mg/dL (8.4-10.2); Carbon Dioxide 24 mmol/L (22-30); Chloride 106 mmol/L (98-107); Glucose 174 mg/dL (74-99); Non-African American GFR(CKD) 61 (>60 ml/min/1.73 sqM); Potassium 4.3 mmol/L (3.5-5.1); Sodium 141 mmol/L (137-145); Total Bilirubin 0.6 mg/dL (0.2-1.3); Total Protein 7.8 g/dL (6.3-8.2)
== END 2023-04-07 10:40 | disposition home or self-care (01) ==
LOC: EC 07:22
DX: I77.6 Arteritis, unspecified (principal); R21 Rash and other nonspecific skin eruption; E11.9 Type 2 diabetes mellitus without complications; E78.5 Hyperlipidemia, unspecified; I10 Essential (primary) hypertension; Z88.0 Allergy status to penicillin; Z88.8 Allergy status to other drugs, medicaments and biological substances; Z91.030 Bee allergy status; Z79.82 Long term (current) use of aspirin; Z79.899 Other long term (current) drug therapy
CPT/HCPCS: 36415; 80053; 85025; 85610; 85730; 99283

== ENCOUNTER → 2023-07-06 | Outpatient (CLI) | payer MEDICARE, BC ==
[2023-07-06] MEDS: SODIUM CHLORIDE 0.9% 500 ML 500 ML in EMPTY BAG 1 BAG IV PRN (09:05)
[2023-07-06] MEDS: IRON SUCROSE 400 MG in SODIUM CHLORIDE 0.9% 250 ML IVPB NR (09:06)
[2023-07-06 09:27] VITALS: BP 180/88; PULSE 55; RESP 16; TEMP 98.1
== END ==
LOC: PROCWHC3 08:38
PROVIDERS: ATTEND Family Medicine
DX: D50.8 Other iron deficiency anemias (principal); R53.83 Other fatigue
CPT/HCPCS: 96365; 96366; J1756

== ENCOUNTER → 2023-07-13 | Outpatient (CLI) | payer MEDICARE, BC ==
--- NOTE | 2023-07-13 17:34 | CA ---
Transthoracic Echo Report Name: Piero Davies Age: 67 Gender: M : 1955 Exam Date: 07/13/2023 14:02 Exam Location: [place] [facility] Ht (in): 70 Wt (lb): 318 Ordering Physician: Marcelo Maharaj DO Attending/Referring Phys: Marcelo Maharaj DO Echocardiologist NancySteve RDCS Procedure CPT: Indications: I10 HTN G47.33 SLEEP APNEA R07.89 CHEST PAIN Cardiac Hx: Technical Quality: Very technically difficult study Contrast 1: Definity Total Dose (mL): 3 Contrast 2: Total Dose (mL): MEASUREMENTS (Male / Female) Normal Values 2D ECHO LV Diastolic Diameter PLAX 5.3 cm 4.2 - 5.9 / 3.9 - 5.3 cm LV Systolic Diameter PLAX 3.8 cm IVS Diastolic Thickness 1.2 cm 0.6 - 1.0 / 0.6 - 0.9 cm LVPW Diastolic Thickness 1.8 cm 0.6 - 1.0 / 0.6 - 0.9 cm LV Relative Wall Thickness 0.6 LVOT Diameter 2.6 cm Aortic Root Diameter 3.8 cm LA Systolic Diameter LX 4.3 cm 3.0 - 4.0 / 2.7 - 3.8 cm DOPPLER AV Peak Velocity 160.7 cm/s AV Peak Gradient 10.3 mmHg AV Mean Velocity 85.4 cm/s AV Mean Gradient 3.3 mmHg AV Velocity Time Integral 32.3 cm LVOT Peak Velocity 130.9 cm/s LVOT Peak Gradient 6.9 mmHg LVOT Velocity Time Integral 32.6 cm LVOT Stroke Volume 172.8 cm??? LVOT Stroke Volume Index 68.0 ml/m??? LVOT Cardiac Index 3592.4 cm???/min???m??? AV Area Cont Eq vti 5.4 cm??? AV Area Cont Eq pk 4.3 cm??? Mitral E Point Velocity 107.4 cm/s Mitral A Point Velocity 126.2 cm/s Mitral E to A Ratio 0.9 MV Deceleration Time 230.8 ms PV Peak Velocity 107.6 cm/s PV Peak Gradient 4.6 mmHg FINDINGS Left Ventricle Mildly increased septal wall thickness. Left ventricular ejection fraction is estimated at 50-55 %. No obvious regional wall motion abnormalities. Moderate concentric left ventricular hypertrophy. Right Ventricle Normal right ventricular size and function. Unable to estimate the right ventricular systolic pressure. Right Atrium Normal right atrial size. Left Atrium Mildly increased left atrial diameter. Mitral Valve Trace mitral regurgitation. Aortic Valve Aortic valve not well visualized. Tricuspid Valve No tricuspid regurgitation. Pulmonic Valve No pulmonic regurgitation. Pericardium No pericardial effusion. Aorta Aortic root dilatation measuring 4.2 cm. CONCLUSIONS Normal LV function Ascending aortic aneurysm measuring 4.2 cm Previewed by: Dr. Wing Lou MD (Electronically Signed) Final Date: 13 July 2023 17:33
== END | disposition home or self-care (01) ==
LOC: RADECHMAIN 13:50
PROVIDERS: ATTEND Family Medicine
DX: I10 Essential (primary) hypertension (principal); G47.33 Obstructive sleep apnea (adult) (pediatric); R07.89 Other chest pain
CPT/HCPCS: C8929; Q9957; 93306

== ENCOUNTER 2023-08-08 07:01 | Day surgery (SDC) | payer MEDICARE, BC ==
[2023-08-03 16:41] VITALS: BMI 42.5
[~2023-08-08 07:01] MED LIST changes: -KETAMINE HCL IN 0.9 % NACL 50 MG/5 ML SYRINGE ONE; -LIDOCAINE 1% (10MG/ML) FOR IV START INTRADERMA PRN; -LIDOCAINE 2% INJ 20 MG/ML (2 ML VIAL) ONE; -LIDOCAINE 2% INJ 20 MG/ML INTRATRACH ONE; -MIDAZOLAM 2 MG/2 ML VIAL ONE; -ONDANSETRON 4 MG/2 ML VIAL IVP PRN; -PROPOFOL 10 MG/ML 20 ML VIAL IV ONE; -fentaNYL (PF) 50 MCG/ML 2 ML AMP ONE
[2023-08-08] MEDS: LACTATED RINGERS 1,000 ML IV ONE (07:13)
[2023-08-08 07:25] LABS: Glucose,Whole Blood 152 mg/dL (70-110)
[2023-08-08 08:02] VITALS: RESP 18; TEMP 98.2
[2023-08-08] MEDS ORDERED: PROPOFOL 10 MG/ML 20 ML VIAL IV ONE (08:17)
--- NOTE | 2023-08-08 08:20 | P.GSHP ---
History of Present Illness H&P Date: 08/08/23 Chief Complaint: Anemia, screening 67-year-old male here for colonoscopy and EGD. Patient with low iron and anemia. Sees hematology. Told that he needed to have both upper and lower endoscopy. No rectal bleeding or melena. No family history of colon cancer. Last colonoscopy 9 years ago. Past Medical History Past Medical History: Chest Pain / Angina, Diabetes Mellitus, Hearing Disorder / Deafness, Hyperlipidemia, Hypertension, Osteoarthritis ([place]), Pneumonia Additional Past Medical History / Comment(s): Mild hearing loss. Recent anemia of unknown origin, had iron infusions X3, last 07/28/23. Hx sigmoid diverticulosis, Vitamin D Deficency, diet controlled diabetes. History of Any Multi-Drug Resistant Organisms: None Reported Past Surgical History: Back Surgery Additional Past Surgical History / Comment(s): Colonoscopy with biopsy and polypectomy, PAIN PROCEDURE AT OA, LAMINECTOMY/DECOMPRESSION L3-5. Past Anesthesia/Blood Transfusion Reactions: No Reported Reaction Smoking Status: Never smoker, Second hand smoke exposure - Past Family History Father Family Medical History: Hypertension, Myocardial Infarction ([place]) Additional Family Medical History / Comment(s): AGE 51 [place]. Mother Family Medical History: Cancer Additional Family Medical History / Comment(s): LUNG CANCER. Medications and Allergies Home Medications Medication Instructions Recorded Confirmed Type Aspirin 81 mg PO DAILY 09/02/14 08/03/23 History Atorvastatin Calcium [Lipitor] 80 mg PO HS 09/02/14 08/03/23 History Multivitamin [Men's Multi-Vitamin] 1 tab PO DAILY 09/02/14 08/03/23 History atenoloL [Tenormin] 100 mg PO HS 09/02/14 08/03/23 History Ascorbic Acid [Vitamin C] 500 mg PO DAILY 12/17/19 08/03/23 History Verapamil HCl [Verapamil ER] 240 mg PO BID 12/17/19 08/03/23 History hydrALAZINE HCL [Apresoline] 50 mg PO TID 12/17/19 08/03/23 History traMADol HCL 50 mg PO BID PRN 12/17/19 08/03/23 History traZODone HCL 100 mg PO HS 12/17/19 08/03/23 History Celecoxib [CeleBREX] 200 mg PO BID 05/19/21 08/03/23 History Bumetanide [BUMEX] 0.5 mg PO DAILY 11/10/21 08/03/23 History Montelukast [Singulair] 10 mg PO HS 08/03/23 08/03/23 History cloNIDine HCL 0.1 mg PO TID 08/03/23 08/03/23 History predniSONE 10 mg PO BID 08/03/23 08/03/23 History Allergies Allergy/AdvReac Type Severity Reaction Status Date / Time bee venom protein (honey bee) Allergy Swelling Verified 08/03/23 16:10 lisinopril Allergy Anaphylaxis Verified 08/03/23 16:10 Penicillins Allergy Rash/Hives Verified 08/03/23 16:10 Surgical - Exam Vital Signs Temp Pulse Resp BP Pulse Ox 98.2 F 85 18 183/93 94 L 08/08/23 07:25 08/08/23 07:25 08/08/23 07:25 08/08/23 07:25 08/08/23 07:25 Physical exam: General: Well-developed, well-nourished HEENT: Normocephalic, sclerae nonicteric Abdomen: Nontender, nondistended Extremities: No edema Neuro: Alert and oriented Results - Labs Abnormal Lab Results - Last 24 Hours (Table) 08/08/23 Range/Units 07:22 POC Glucose (mg/dL) 152 H (70-110) mg/dL Assessment and Plan (1) Anemia Narrative/Plan: Will proceed with upper and lower endoscopy at this time. Current Visit: Yes Status: Acute Code(s): D64.9 - ANEMIA, UNSPECIFIED [facility] Code(s): 318156651
--- NOTE | 2023-08-08 08:55 | P.PCN ---
Date of Procedure: 08/08/23 Procedure(s) Performed: PREOPERATIVE DIAGNOSIS: Anemia, screening POSTOPERATIVE DIAGNOSIS: Gastritis, mild left-sided colitis, multiple colon polyps, diverticulosis PROCEDURE: 1. EGD with biopsy 2. Colonoscopy with biopsy and snare polypectomy [place] [facility] [place]: Abdias Espinosa M.D. SPECIMENS: Antral gastritis, colon polyps, colitis ENDOSCOPIC PROCEDURE: The patient was on the endoscopy table in the left decubitus position. The Olympus gastroscope was inserted into the oropharynx and passed under direct visualization to the region of the third portion of the duodenum. From that point the scope was slowly withdrawn inspecting all surfaces carefully. There were no neoplastic inflammatory or polypoid lesions throughout the duodenum. The pylorus was widely patent. The stomach was carefully inspected. There was pigmented inflammatory change in the antrum and prepyloric region. Multiple biopsies were taken of that area. No ulcerations were noted. No active bleeding was seen. Retroflexion revealed a normal hiatus. The esophagus was then carefully examined. There were no neoplastic inflammatory or polypoid lesions throughout the visualized esophagus. The patient was kept on the endoscopy table in the left decubitus position. The Olympus colonoscope was inserted into the anus and passed under direct visualization to the base of the cecum. The appendiceal orifice was visualized. From that point the scope was slowly withdrawn inspecting all surfaces carefully. There were no neoplastic inflammatory or polypoid lesions throughout the cecum or ascending colon. In the transverse colon 3 separate polyps were identified and removed using the snare with cautery technique. The descending colon appeared normal. In the sigmoid colon 3 more polyps were seen and removed in a similar fashion. In the distal sigmoid colon there was mild erythema of the mucosa with mild edema present. Multiple biopsies were taken. This appeared consistent with a mild colitis. The patient had extensive left-sided diverticulosis. The rectum appeared normal. Digital rectal examination was normal. The patient was taken to the recovery room in stable condition per anesthesia guidelines. RECOMMENDATIONS: Resume diet. Source of anemia could be related to the patient's antral gastritis or mild colitis. Await biopsy results. Will require short-term repeat colonoscopy 2 to 3 years given the multiple polyps seen today.
[2023-08-08 09:25] VITALS: BP 185/93; PULSE 67
== END 2023-08-08 09:42 | disposition home or self-care (01) ==
LOC: ORWHC2ENDO 07:01
PROVIDERS: ATTEND Surgery
DX: K29.50 Unspecified chronic gastritis without bleeding (principal); D12.5 Benign neoplasm of sigmoid colon; D12.3 Benign neoplasm of transverse colon; K57.30 Diverticulosis of large intestine without perforation or abscess without bleeding; K51.50 Left sided colitis without complications; I10 Essential (primary) hypertension; E78.5 Hyperlipidemia, unspecified; E11.9 Type 2 diabetes mellitus without complications; D64.9 Anemia, unspecified; G47.33 Obstructive sleep apnea (adult) (pediatric); H91.90 Unspecified hearing loss, unspecified ear; E66.01 Morbid (severe) obesity due to excess calories; J18.9 Pneumonia, unspecified organism; N28.9 Disorder of kidney and ureter, unspecified; M19.90 Unspecified osteoarthritis, unspecified site; Z79.52 Long term (current) use of systemic steroids; Z88.0 Allergy status to penicillin; Z88.8 Allergy status to other drugs, medicaments and biological substances; Z91.030 Bee allergy status; Z79.82 Long term (current) use of aspirin; Z79.899 Other long term (current) drug therapy; Z68.41 Body mass index [BMI] 40.0-44.9, adult
CPT/HCPCS: 88305; 45380; 45385; 43239; J2704

== ENCOUNTER 2023-12-12 11:19 | Emergency (ER) | payer MEDICARE, BC ==
[2023-12-12] MEDS ORDERED: hydrALAZINE HCL 50 MG TAB ONE (15:46)
[2023-12-12] MEDS ORDERED: cloNIDine HCL 0.1 MG TAB ONE (15:46)
[2023-12-12] MEDS ORDERED: VERAPAMIL 80 MG TAB ONE (18:24)
[2023-12-12] MEDS ORDERED: MELOXICAM 7.5 MG TAB ONE (18:29)
[2023-12-12] MEDS ORDERED: cefTRIAXone IN SWFI 1,000 MG/10 ML SYRINGE IVP ONE (18:29)
[2023-12-12] MEDS ORDERED: SODIUM CHLORIDE 0.9% 1,000 ML BAG ONE (18:38)
[2023-12-12] MEDS ORDERED: ATORVASTATIN 80 MG TAB ONE (18:48)
[2023-12-12] MEDS ORDERED: atenoloL 50 MG TAB ONE (18:48)
[2023-12-12] MEDS ORDERED: ACETAMINOPHEN TAB 325 MG TAB ONE (19:07)
[2023-12-13] MEDS ORDERED: ACETAMINOPHEN TAB 325 MG TAB ONE (07:00)
[2023-12-13] MEDS ORDERED: ATORVASTATIN 80 MG TAB ONE (09:12)
[2023-12-13] MEDS ORDERED: ASPIRIN 81 MG ONE (09:14)
[2023-12-13] MEDS ORDERED: BUMETANIDE 1 MG TAB ONE (09:50)
[2023-12-13] MEDS ORDERED: VERAPAMIL 80 MG TAB ONE ×2 (09:51→17:18)
[2023-12-13] MEDS ORDERED: MELOXICAM 7.5 MG TAB ONE (09:51)
[2023-12-13] MEDS ORDERED: atenoloL 50 MG TAB ONE (09:52)
[2023-12-13] MEDS ORDERED: cefTRIAXone IN SWFI 1,000 MG/10 ML SYRINGE IVP ONE (09:55)
[2023-12-13] MEDS ORDERED: PANTOPRAZOLE 40 MG TABLET PO ONE (17:15)
--- NOTE | 2024-01-09 11:50 | CT ---
"MARLA GRACE : 1955 EXAMINATION: CT Angio Chest PE Protocol TECHNIQUE: Contiguous axial scanning through the chest following administration of 100 mL Isovue 370 IV contrast. Axial, coronal, and sagittal MIP reconstructions were performed. Automated exposure control for dose reduction was used. DATE: 12/12/2023 3:40 PM COMPARISON: No priors available during down to HISTORY: 68-year-old male elevated d-dimer, hemoptysis, assess for PE FINDINGS: The heart is upper limits of normal in size without pericardial effusion. No flattening of the interv entricular septum or reflux of contrast into the hepatic veins. LAD coronary artery calcifications ar e present. Aorta normal caliber with aberrant direct takeoff of the left vertebral artery directly from the aort ic arch. Mildly enlarged 1.6 cm right paratracheal lymph node. Enlarged 2.4 cm right hilar lymph node. Borderline sized 1.3 cm subcarinal lymph node. 1.7 cm right bronchial lymph node. These may be reactive/post inflammatory. Large caliber to the main right and left pulmonary arteries measuring up to 2.9 cm. There is suboptim al opacification of the pulmonary arterial system with attenuation of 17 Hounsfield units. Allowing f or this limitation, no large central or definite lobar branch pulmonary embolus is seen. Segmental an d more distal arterial branches are very limited to nondiagnostic. Patchy and confluent bilateral groundglass and airspace opacity No pleural effusion. Spleen enlarged at 16.2 cm. Visualized upper abdomen otherwise shows no gross abnormality. Bones: Extensive dish mid and lower thoracic spine. IMPRESSION: 1. Suboptimal contrast bolus. No large central or definite lobar branch pulmonary embolus. Many of th e segmental and more distal arterial branches are very limited to nondiagnostic and emboli in these l ocations cannot be excluded on the basis of this exam. 2. Extensive patchy and confluent bilateral airspace disease. Correlate for multifocal pneumonia, pul monary edema, atypical pneumonias, interstitial pneumonitis, aspiration, hypersensitivity pneumonitis , etc. 3. Mediastinal and right hilar adenopathy measuring up to 2.4 cm likely reactive/post inflammatory. T hree-month follow-up CT after treatment to ensure stability/resolution. 4. Findings suggest underlying pulmonary hypertension. 5. Incidental splenomegaly at 16.2 cm. Clinically correlate."
--- NOTE | 2024-01-09 13:07 | US ---
Site ID [facility] Patient Piero Davies ID [id number] 1955 Age/Gender: 68Y, O Order # N/A Procedure US RENALS AND BLADDER Date 12/12/2023 9:43:00 PM EXAMINATION TYPE: US renals and bladder DATE OF EXAM: 12/30/2023 COMPARISON: NONE CLINICAL INDICATION: 68 year old with history of acute kidney injury. EXAM MEASUREMENTS: Limited examination due to patient's body habitus Right Kidney: 9.8 x 5.9 x 5.8 cm Left Kidney: 12.4 x 7.1 x 5.6 cm Right Kidney: wnl Left Kidney: Slightly large in size Bladder: Underdistended secondary to recent weight There is no evidence for hydronephrosis at this point in time. Left kidney slightly larger than the r ight. Corticomedullary differentiation is maintained bilaterally. No nephrolithiasis is seen. No mas ses are identified. The urinary bladder is not well-visualized due to underdistention from recent vo id. IMPRESSION: Limited examination due to patient's body habitus. No hydronephrosis.
--- NOTE | 2024-01-17 09:55 | XR ---
Patient Piero Davies ID [id number] Order # EXAMINATION TYPE: XR chest 2V DATE OF EXAM: 12/12/2023 COMPARISON: No comparison available on downtime PACS. INDICATION: Difficulty in breathing onset 12/06/2023 TECHNIQUE: Frontal and lateral views of the chest are obtained. FINDINGS: The heart size is large. The pulmonary vasculature is indistinct. Patchy infiltrate is present throughout the bilateral lung ramos. Correlate for pneumonia. Consider atypical pneumonia such as COVID. Underlying neoplasm is not excluded. Follow-up is recommended. IMPRESSION: 1. Patchy bilateral lung infiltrates. Correlate for pneumonia. Consider atypical forms of pneumonia. Follow-up to clearing is recommended.
== END 2023-12-13 19:54 | disposition short-term general hospital (02) ==
LOC: EC 11:19
DX: R06.02 Shortness of breath (principal)
CPT/HCPCS: 36415; 71046; 71275; 76770; 80053; 80074; 81003; 82570; 83516; 83605; 83735; 83880; 84145; 84165; 84300; 84484; 85025; 85379; 85610; 85652; 85730; 86038; 86140; 86160; 86225; 86255; 86334; 86850; 86900; 86901; 87040; 87070; 87205; 87449; 87636; 89050; 93005; 93306; 96361; 96374; 99285